=== PATIENT | female | born 1990 | race Caucasian/White ===

== ENCOUNTER → 2021-09-20 08:26 | Outpatient (BNVA) | payer OTHER, SELFPAY | PROVIDERS: PCP Physician Assistant; Visit Provider Psychiatry & Neurology Neurology | DX: G43.909 Migraine, unspecified, not intractable, without status migrainosus (principal); G47.33 Obstructive sleep apnea (adult) (pediatric); G93.2 Benign intracranial hypertension | CPT/HCPCS: 99212 ==

== ENCOUNTER → 2021-10-22 08:49 | Outpatient (BNVA) | payer OTHER, SELFPAY | PROVIDERS: PCP Physician Assistant; Visit Provider Psychiatry & Neurology Neurology | DX: G43.909 Migraine, unspecified, not intractable, without status migrainosus (principal); G47.33 Obstructive sleep apnea (adult) (pediatric); G93.2 Benign intracranial hypertension | CPT/HCPCS: 99212 ==

== ENCOUNTER → 2022-01-07 20:26 | Outpatient (REF) | payer OTHER, SELFPAY | LOC: HO.SL 20:26 | PROVIDERS: PCP Physician Assistant; Visit Provider Psychiatry & Neurology Neurology | DX: G47.33 Obstructive sleep apnea (adult) (pediatric) (principal) | CPT/HCPCS: 95810 ==

== ENCOUNTER 2024-04-24 09:35 | Outpatient (AMB) | payer OTHER, SELFPAY ==
--- NOTE | 2024-04-24 09:38 | MHC.OFFVIS ---
Vital Signs 04/24/24 09:39 Height 5 ft 5 in Weight 261 lb 8 oz BMI 43.5 BP 118/70 Blood Pressure Location Rt brachial Position Sitting Respiration 16 Pulse 79 Pulse Source Pulse Oximeter Pulse Oximetry (%) 98 Oxygen Delivery Method Room Air Intake Visit Reasons: Follow up Intake Note: Pt presents for a 6 month follow up for migraines. 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 Her migraines have been stable with aimovig but for past 1 month she has been having increased episodes of migraines with dizziness and black outs ? ( she describes it as losing consciousness for few minutes. when she wake sup she is dizzy an has decreased headaches. she has nausea, photophobia, phonophobia, tinnitus , eye pain, visual aura).she has persistent pain - worsens every 2-3 days. She treats herself with ubrelvy , advil , excedrin. Sleep study in 2021 was normal SHe sees an office services manager every year - he last eval was in sep 2023 - no swelling. she was also seen by a neurolgist at [place] and was diagnosed with right Carpal tunnel . . [facility] Medical History (Updated 04/24/24 @ 10:11 by Fadia Mayfield MD) Carpal tunnel syndrome of right wrist Chronic migraine with aura Obstructive sleep apnea Obesity Asthma PCOS (polycystic ovarian syndrome) Surgical History Previous section H/O knee surgery Family History Father HTN (hypertension) Migraines Family history of GERD Mother HTN (hypertension) Thyroid disease Cancer Family/Other Asthma Allergy Paternal Grandfather Allergy Asthma Cancer Maternal Grandfather HTN (hypertension) Thyroid disease Social History Alcohol intake: never Patient Tobacco Use Status: Never used Tobacco Substance Use Type: Marijuana Physical Exam Vital Signs: Last Vital Signs Pulse 79 04/24/24 09:39 Resp 16 04/24/24 09:39 BP 118/70 04/24/24 09:39 Pulse Ox 98 04/24/24 09:39 Oxygen Delivery Method Room Air 04/24/24 09:39 BMI result Body Mass Index 43.5 Const General: cooperative and no acute distress Nutritional Appearance: obese Orientation/consciousness: patient oriented x3 Eyes Pupils: Equal, round and reactive pupils present Neuro General: patient oriented x3, gait normal, moves all extremities, no focal motor deficits and CN's II-XI intact bilaterally Cranial nerves: Yes CN's II-XII intact bilaterally, Yes Equal, round and reactive pupils present and Yes Normal facial strength present Cognition (Neuro): normal cognition Assessment & Plan Assessment & Plan (1) Chronic migraine with aura: Code(s): G43.E09 - Chronic migraine with aura, not intractable, without status migrainosus Category: Medical (2) Carpal tunnel syndrome of right wrist: Code(s): G56.01 - Carpal tunnel syndrome, right upper limb Category: Medical Plan I will trial her on Topiramate 25 mg bid Continue ubrelvy and aimovig reports from her neurologist at [facility] ( [facility] ) Urgent f/o ophthalmology Orders: Referrals Hand Surgery Referral G56.01 - Carpal tunnel syndrome, right upper limb Medications: New topiramate 25 mg PO BID 60 tabs 6RF Discontinued acetazolamide Discontinued Reason: Patient no longer taking 500 mg (2 x 250 mg) PO BID 360 tabs 1RF Coding Level of Care Code Est Pt Level 4 (61440) Complex EM visit Add On G2211 Diagnoses Chronic migraine with aura G43.E09 Carpal tunnel syndrome of right wrist G56.01
[2024-04-24 09:39] VITALS: BP 118/70; PULSE 79; RESP 16; O2SAT 98; BMI 43.5
== END 2024-04-24 10:20 | disposition home or self-care (01) ==
PROVIDERS: PCP Internal Medicine; Visit Provider Psychiatry & Neurology Neurology
DX: G43.E09 Chronic migraine with aura, not intractable, without status migrainosus (principal); G56.01 Carpal tunnel syndrome, right upper limb
CPT/HCPCS: 99214; G2211

== ENCOUNTER → 2024-04-24 09:35 | Outpatient (BNVA) | payer OTHER, SELFPAY | PROVIDERS: PCP Internal Medicine; Visit Provider Psychiatry & Neurology Neurology | DX: G43.E09 Chronic migraine with aura, not intractable, without status migrainosus (principal); G56.01 Carpal tunnel syndrome, right upper limb | CPT/HCPCS: 99212 ==

== ENCOUNTER 2024-05-22 09:32 | Outpatient (AMB) | payer OTHER, SELFPAY ==
--- NOTE | 2024-05-22 10:25 | MHC.OFFVIS ---
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 Patient reports she is having more pain than numbness and tingling on the ulnar and radial aspect of the right hand. She is having occasional numbness and minimal tingling. She finds writing makes the pain worse. She had episodes of night numbness and tingling that have now subsided and turned into pain. She has been told this is a neurological problem. Denies finger locking. She is wearing a right hand brace she bought OTC. She has not tried OT. Denies any prior injuries or surgeries to the hands. Patient would like to discuss surgery today however, she is scheduled for a weight loss surgery at the end of the year. 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 Her chief complaint today is of right hand pain, which she demonstrates in the ulnar & radial aspects of her hand & wrist. She says she has pain with activities and use of her hand. 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 She finds her pain is worse with gripping activities, such as writing with a pen, or when doing her hair She reports episodes of intermittent numbness in her thumb index, and middle fingers, worse at night. She says this has transitioned into periods of pain instead. She denies any locking or catching. She denies any prior treatment options. She is wearing a right OTC wrist brace, with limited relief. She has a Hx of chronic migraines. 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 She says she is scheduled for a Gastric bypass on 06/14/24. [facility] Medical History (Updated 05/22/24 @ 11:03 by Darrel Cullen) Carpal tunnel syndrome of right wrist Chronic migraine with aura Obstructive sleep apnea Obesity Asthma PCOS (polycystic ovarian syndrome) Surgical History Previous section H/O knee surgery Family History Father HTN (hypertension) Migraines Family history of GERD Mother HTN (hypertension) Thyroid disease Cancer Family/Other Asthma Allergy Paternal Grandfather Allergy Asthma Cancer Maternal Grandfather HTN (hypertension) Thyroid disease Social History (Updated 05/22/24 @ 10:42 by SUDHEER Malone) Alcohol intake: never Patient Tobacco Use Status: Never used Tobacco Substance Use Type: Marijuana 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, 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 Review of Systems Const All systems reviewed & are unremarkable except as noted in HPI and below Physical Exam Vital Signs: BMI result Body Mass Index 43.5 Const General: cooperative, healthy appearing and no acute distress Orientation/consciousness: patient oriented x3 HEENT Head: Yes normocephalic and Yes atraumatic Eyes EOM: EOMs intact bilaterally Resp Effort & Inspection: normal respiratory effort and able to speak in complete sentences Cardio Jugular venous distension: no JVD Skin General skin exam: turgor normal Rashes: no rashes Neuro General: patient oriented x3 Extrem Other: Evaluation of Right Upper Extremity: The patient is alert, oriented, and in no acute distress Neuro: Median, Ulnar, Radial nerves motor and sensory intact and sensation is normal to the tips of all digits No thenar or intrinsic wasting Good APB muscle belly firing and good finger cross Vascular: Cap refill brisk ROM: She can make a fist and extend all her digits No locking or catching Skin: No lacerations or abrasions. General: No Ecchymosis. No Erythema or evidence of infection. No tenderness over the 1st dorsal compartment Negative Alice test on the right No tenderness over the thumb a1 carmelita She demonstrates pain extending from her lateral elbow up into her shoulder She demonstrates pain radiating down the palmar small finger & hypothenar area, across carpal tunnel, and up the volar aspect of the thumb Nerve Conduction Study: Impression 1. Mild bilateral carpal tunnel syndrome, R>L 2. No evidence of cervical radiculopathy, or ulnar neuropathy Amilcar Clark M.D. 07/28/23 [facility] lab Please see scanned report for more information Psych Appearance: grossly normal Affect: normal affect Attitude: cooperative Assessment & Plan Assessment & Plan (1) Carpal tunnel syndrome of right wrist: Code(s): G56.01 - Carpal tunnel syndrome, right upper limb Category: Medical (2) Carpal tunnel syndrome of left wrist: Code(s): G56.02 - Carpal tunnel syndrome, left upper limb Category: Medical (3) Right hand pain: Code(s): M79.641 - Pain in right hand Category: Medical Plan Assessment & Plan: 1. Right carpal tunnel syndrome, mild Symptoms intermittent & occasional 2. Left carpal tunnel syndrome, mild Symptoms intermittent & occasional I educated her about this conditions If her symptoms increase in frequency or severity, she can follow up to discuss treatment options She will make a follow up appointment when she has recovered from her weight loss surgery 3. Right hand pain Volar aspect of small finger, hypothenar area, thenar area, and thumb Primarily with writing or other activities. I educated her about this condition I discussed activity modification, she should try to limit or avoid the activities which cause her pain Scribed for Kelley Fields MD by Darrel Cullen medical support assistant, on 05/22/24 at 10:50 AM, EST. Coding Level of Care Code New Pt Level 3 (68811) Diagnoses Carpal tunnel syndrome of right wrist G56.01 Carpal tunnel syndrome of left wrist G56.02 Right hand pain M79.641
[2024-05-22 10:37] VITALS: BMI 43.5
== END 2024-05-22 11:29 | disposition home or self-care (01) ==
PROVIDERS: PCP Internal Medicine; Visit Provider Orthopaedic Surgery
DX: G56.03 Carpal tunnel syndrome, bilateral upper limbs (principal); M79.641 Pain in right hand
CPT/HCPCS: 99203

== ENCOUNTER → 2024-05-22 09:32 | Outpatient (BNVA) | payer OTHER, SELFPAY | PROVIDERS: PCP Internal Medicine; Visit Provider Orthopaedic Surgery | DX: G56.03 Carpal tunnel syndrome, bilateral upper limbs (principal); M79.641 Pain in right hand | CPT/HCPCS: 99202 ==

== ENCOUNTER 2025-04-18 11:05 | Outpatient (AMB) | payer MEDICAID, SELFPAY ==
--- OUTSIDE RECORDS SUMMARY | 2025-04-11 10:15 | XMS_ITS | Encounter Summary ---
Author Organization [employer] Address [address] [place] [address] Support Name Relationship Address Phone Axel England Domestic partner [address] [facility] [facility] [facility] [address] [place] [address] Care Team Providers Care Farm Management Supervisor Name Role Phone Suze Shahid MD Primary Care Provider [phone] Reason for Referral * Consultation (Urgent) - Closed Specialty Diagnoses / Procedures Referred By Pau almanzar Referred To Contact Neurology Diagnoses Overweight (BMI 25.0-29.9) Pseudotumor cerebri Nicole Lagunas PA [address] [place] [address] Phone: tel: fax: [facility] [address] [address] Phone: tel: fax: Referral ID Status Reason Start Date Expiration Date V isits Requested Visits Authorized [id number] Closed Specialty Services Required 04/11/2025 04/11/2026 1 1 Reason for Visit * Reason Comments Follow-up 2 month Encounter Details Date Type Department Care Team ([facility] Contact Info) Description 04/11/2025 10:15 AM EDT Office Visit Bariatric Surgery - [place] [address] [facility] [address] [place] [phone] Nicole Lagunas PA [address] [place] [phone] Overweight (BMI 25.0-29.9) (Primary Dx); Pseudotumor cerebri Social History Tobacco Use Types Packs/Day Years Used Date Smoking Tobacco: Never Smokeless Tobacco: Never Alcohol Use Standard Drinks/Week Comments Never 0 (1 standard drink = 0.6 oz pur e alcohol) Housing Instability Answer Date Recorde d Are you worried that in the next 2 months you may not have stable housing? Unable to respond 02/12/2025 Food Access & Nutrition Answer Date Rec orded Do you have access to a vari ety of food including fruits and vegetables? Unable to respond 02/12/2025 Health Literacy Answer Date Recorded How often do you need to hav e someone help you when you read instructions, pamphlets, or other written material from your doctor or pharmacy? Unable to respond 02/12/2025 Caregiver: How often do you need to have someone help you when you read instructions, pamphlets, or other written material from your doctor or pharmacy? Not on file 025 Financial Risk Answer Date Recorded How hard is it for you to pa y for the very basics like food, housing, medical care, and air conditioning / heating? Not asked 02/12/2025 Transportation Answer Date Recorded Has the lack of transportati on kept you from meetings, work, or from getting things needed for daily living? Unable to respond 02/12/2025 Has the lack of transportati on kept you from medical appointments or from getting medications? Unable to respond 02/12/2025 Social Isolation Answer Date Recorded How often do you feel lonely or isolated from those around you? Unable to respond 02/12/2025 Food Risk Answer Date Recorded Within the past 12 months we worried whether our food would run out before we got money to buy more. Not asked 02/12/2025 Within the past 12 months th e food we bought just didn't last and we didn't have money to get more. Not asked 02/12/2025 Dependent Care Answer Date Recorded Do you need help finding or paying for care for your loved ones. For example, child development professor or elderly care for an older adult? Unable to respond 02/12/2025 Employment and Income Answer Date Recor ded During the last four weeks, have you been actively looking for work? Unable to respond 02/12/2025 Living Situation Answer Date Recorded What is your living situation? 0 02/12/2025 Comments No Sex and Gender Information Value Date Recorded Sex Assigned at Female 07/27/2024 11:46 AM EST Legal Sex Female 12:42 AM EST Gender Identity Female 07/27/2024 11:46 AM EST Sexual Orientation Straight 07/27/2024 11 :46 AM EST documented as of this encounter Last Filed Vital Signs Vital Sign Reading Time Taken Comments Blood Pressure 103/68 04/11/2025 10:13 AM EDT Pulse 64 04/11/2025 10:13 AM EDT Temperature 36.6 C (97.8 F) 04/11/2025 10:13 AM EDT Respiratory Rate - - Oxygen Saturation - - Inhaled Oxygen Concentration - - Weight 75.8 kg (167 lb) 04/11/2025 10:13 AM EDT Height 165.1 cm (5' 5 ) 04/11/2025 10:13 AM EDT Body Mass Index 27.79 04/11/2025 10:13 AM EDT documented in this encounter Functional Status * Are you deaf or do you have serious difficulty hearing? Answer Date of Assessment Author No 12/14/2024 8:00 AM VISHALT Phoebe Lawrence RN * Are you blind or do you have serious difficulty seeing, even when wearing glasses? Answer Date of Assessment Author No 12/14/2024 8:00 AM Phoebe Arce, BRAYDEN * Do you have serious difficulty walking or climbing stairs? Answer Date of Assessment Author No 12/14/2024 8:00 AM Phoebe Arce RN * Do you have serious difficulty dressing or bathing? Answer Date of Assessment Author No 12/14/2024 8:00 AM Phoebe Arce RN * Because of a physical, mental, or emotional condition, do you have serious difficulty doing errandsalone such as visiting the doctor? Answer Date of Assessment Author No 12/14/2024 8:00 AM Phoebe Arce RN documented as of this encounter Mental Status * Because of a physical, mental, or emotional condition, do you have serious difficulty concentrating, remembering, or making decisions? (5 years old or older) Answer Entry Date Author No 12/14/2024 8:00 AM EDT Phoebe Lawrence RN documented in this encounter Progress Notes * BEE Roldan - 04/11/2025 10:15 AM EDT Samantha Casas is a 34 y.o. year old female who presents for follow up regarding obesity. HPI: Samantha Casas presents for surgical follow up s/p sleeve gastrectomy with Dr. Guzman at [facility] on 06/14/2024. - 6 lbs since last appt Patient still dealing with dizziness Initially believed it may be related to her pseudotumor cerebri States that she is starting to get migraines once again Prior to her bariatric surgery she used to experience migraines associated with dizziness She was on an injection to treat her pseudotumor cerebri and this has been held due to issues with her insurance for many months Dizziness does happen with positional changes however sometimes happens while she is walking That the dizziness occurring with positional changes has somewhat improved In the past 2 months she has had 2 episodes of random loss of consciousness She has been caught and not fallen Has had no injuries to her head She has increased her water and her salt intake She does take daily multivitamin Labs were last checked on 04/04/2025 They were all within normal limits including albumin of 3.6 She was supposed to follow-up with her neurologist however the appointment was canceled Has not followed up with her PCP States that she is getting over 64 ounces of clear fluid on a daily basis Meeting her protein goals Taking her vitamins Blood pressure has been within normal limits her last 2 visits Body mass index is 27.79 kg/m??. ROS: GENERAL: No malaise, significant unintentional weight loss, fever, chills or night sweats. RESPIRATORY: No cough, wheezing or shortness of breath CARDIOVASCULAR: No chest pain, leg swelling or palpitations. GI: No abdominal discomfort, nausea, vomiting, or change in bowel habits. : No dysuria, frequency or incontinence. SKIN: No lesions, rash or itching. HEMATOLOGY/LYMPHOLOGY No prolonged bleeding, easy bruisability or swollen nodes. MUSCULOSKELETAL: No abnormalities. NEURO: No abnormalities. The remainder of the review of systems is noncontributory PAST MEDICAL HISTORY: Patient Active Problem List Diagnosis PCOS (polycystic ovarian syndrome) Asthma Migraine Pseudotumor cerebri BRYAN (obstructive sleep apnea) Bariatric surgery status Cysts of both ovaries PAST SURGICAL HISTORY: Past Surgical History: Procedure Laterality Date SECTION PROCEDURE: HISTORICAL DELIVERY; COMMENT: 2 x KNEE SURGERY Right 2012 PROCEDURE: HISTORICAL KNEE SURGERY; COMMENT: arthroscopy for dislocated patella w/ meniscus injury OTHER SURGICAL HISTORY PROCEDURE: LUMBAR PUNCTURE LAB ORDERS; COMMENT: 5 x SLEEVE GASTROPLASTY 06/14/2024 TUBAL LIGATION 2011 PROCEDURE: HISTORICAL TUBAL LIGATION SOCIAL HISTORY: Social History Tobacco Use Smoking status: Never Smokeless tobacco: Never Substance Use Topics Alcohol use: Never FAMILY HISTORY: Family History Problem Relation Name Age of Onset Hypertension Mother hyperthyroidism, thyroid cancer Uterine cancer Mother 48 Hypertension Father migraines, GERD Prostate cancer Father Asthma Sister pseudotumor cerebri Asthma Daughter Asthma Son autism Diabetes Maternal Grandmother HTN, dementia Breast cancer Maternal Grandmother Diabetes Maternal Grandfather HTN, CAD Diabetes Paternal Grandmother Asthma Paternal Grandfather prostate cancer Colon cancer Neg Hx Ovarian cancer Neg Hx Family Status Relation Name Status Mother Alive Father Alive Sister Alive Daughter Alive Son Alive MGM MGF PGM Alive PGF Alive Neg Hx (Not Specified) No partnership data on file MEDICATIONS: There are no discontinued medications. ACTIVE MEDICATIONS: No outpatient medications have been marked as taking for the 04/11/25 encounter (Office Visit) with BEE Roldan. ALLERGIES: Allergies Allergen Reactions Ciprofloxacin Rash and Unknown PHYSICAL EXAM: Visit Vitals BP 103/68 Pulse 64 Temp 36.6 ??C (97.8 ??F) (Temporal) Ht 1.651 m (65 ) Wt 75.8 kg (167 lb) BMI 27.79 kg/m?? OB Status Having periods Smoking Status Never BSA 1.83 m?? APPEARANCE: Alert and in no acute distress EYES: Conjunctiva normal and sclera normal and anicteric. LUNG: Chest no retractions. ABDOMEN: Soft, non-tender, without organomegaly or palpable masses. EXTREMITIES: Extremities warm and well perfused without clubbing, cyanosis, or edema. SKIN: Skin color and texture normal. No rashes or lesions. ASSESSMENT: 1. Overweight (BMI 25.0-29.9) 2. Pseudotumor cerebri PLAN: 1. Overweight- Labs unremarkable Blood pressure within normal limits Certainly could be some degree of orthostatic hypotension although increasing her salt and fluid intake has not yielded any positive results Did have pretty severe pseudotumor cerebri requiring multiple medications prior to her bariatric surgery This could certainly be impacting the symptoms Recommend urgent follow-up with her neurologist Did recommend to the patient that should she have another loss of consciousness episode she should immediately proceed to the ER F/U in 4 weeks Medication and lab orders: Orders Placed This Encounter Procedures Ambulatory referral to Neurology Other orders: AMB REFERRAL TO NEUROLOGY cc: Suze Shahid MD * Paola Guzman MD - 04/11/2025 10:15 AM EDT I have reviewed the notes, assessments, and/or procedures performed by Nicole Lagunas PA-C, I concur with her/his documentation of Samantha Casas. documented in this encounter Plan of Treatment Upcoming Encounters Date Type Department Care Team (Late st Contact Info) Description 04/28/2025 9:30 AM EDT Office Visit Internal Medicine - [place] [address] [facility] [address] [place] [phone] John Oscar, RACHEL [address] [place] [phone] 05/07/2025 10:45 AM EDT Office Visit Bariatric Surgery - [place] [address] [facility] [address] [place] [phone] Nicole Lagunas PA [address] [place] [phone] 05/09/2025 9:15 AM EDT Consult Orthopedic Surgery - [place] [address] [facility] [address] [place] [phone] Torsten Pressley, DPM [address] [facility] [address] [place] [address] 06/24/2025 10:15 AM EST Office Visit Pulmonolgy - [place] [address] [phone] Vahid Vuong MD [address] [address] Scheduled Referrals Name Type Priority Associated Diagnoses Order Schedule Ambulatory referral to Neurology Outpatient Referral Routine Overweight (BMI 25.0-29.9) Pseudotumor cerebri Expected: 04/18/2025, Expires: 04/11/2026 documented as of this encounter Visit Diagnoses Diagnosis Overweight (BMI 25.0-29.9)- Primary Overweight Pseudotumor cerebri Benign intracranial hypertension documented in this encounter Additional Health Concerns Assessment Noted Time PHQ-9 Depression Total Score: 2 12/26/19 25 9:18 AM EDT documented as of this encounter Care Teams Farm Management Supervisor Relationship Specialty Start Date End Date Suze Shahid MD [address] [place] [phone] PCP - General Internal Medicine 06/03/21 documented as of this encounter
--- OUTSIDE RECORDS SUMMARY | 2025-04-17 11:30 | XMS_ITS | Encounter Summary ---
Author Organization [facility] Address [address] [place] [address] Support Name Relationship Address Phone Axel England Domestic partner [address] [facility] [address] [place] [address] Care Team Providers Care Biochemistry Technician Name Role Phone Suze Shahid MD Primary Care Provider [phone] Reason for Referral * Consultation (Routine) - Authorized Specialty Diagnoses / Procedures Referred By Contact Referred To Contact Podiatry / Orthopaedic Surgery Diagnoses Foot callus Baldo Hollis MD [address] [place] [address] Phone: tel: fax: Orthopedic Surgery [facility] [address] [place] [phone] Phone: tel: fax: Referral ID Status Reason Start Date Expiration Date Visits Requested Visits Authorized [id number] Authorized Specialty Services Required 04/17/2025 04/17/2026 6 6 * Consultation (Routine) - Pending Review Specialty Diagnoses / Procedures Referred By Contac t Referred To Contact Cardiology Diagnoses Syncope, unspecified syncope type Baldo Hollis MD [address] [place] [address] Phone: tel: fax: [facility] [address] [place] [address] Phone: tel: fax: Referral ID Status Reason Start Date Expiration Date Visits Requested Visits Authorized [id number] Pending Review Specialty Services Required 04/17/2025 04/17/2026 12 12 Reason for Visit * Reason Comments Fatigue Foot Pain Encounter Details Date Type Department Care Team (Late st Contact Info) Description 04/17/2025 11:30 AM EDT Office Visit Internal Medicine - [place] [address] [facility] [address] [place] [address] Baldo Hollis MD [address] [place] [address] Syncope, unspecified syncope type (Primary Dx); Pseudotumor cerebri; Bariatric surgery status; Foot callus Social History Tobacco Use Types Packs/Day Years [...] for your loved ones. For example, child welfare manager or elderly care for an older adult? [...] Sign Reading Time Taken Comments Blood Pressure 98/62 04/17/2025 10:57 AM EDT Pulse 68 04/17/2025 10:57 AM EDT Temperature - - Respiratory Rate - - Oxygen Saturation 100% 04/17/2025 10:57 AM EDT Inhaled Oxygen Concentration - - Weight 72.6 kg (160 lb) 04/17/2025 10:57 AM EDT Height 165.1 cm (5' 5 ) 04/17/2025 10:57 AM EDT Body Mass Index 26.63 04/17/2025 10:57 AM EDT documented in this encounter Functional Status * Are you deaf or do you have serious difficulty hearing? Answer Date of Assessment Author No 12/14/2024 8:00 AM EDT Phoebe Lawrence, BRAYDEN * Are you blind or do you have serious difficulty seeing, even when wearing glasses? Answer Date of Assessment Author No 12/14/2024 8:00 AM EDT Phoebe Lawrence RN * Do you have serious difficulty walking [...] Entry Date Author No 12/14/2024 8:00 AM Phoebe Arce RN documented in this encounter Progress Notes * Baldo Hollis MD - 04/17/2025 11:30 AM EDT CHIEF COMPLAINT: Fatigue and Foot Pain IDENTIFIER: Samantha Casas is a 34 y.o. old female. History of Present Illness The patient presents for evaluation of syncope and foot callus. - Syncope patient have history of few presyncopal episode with 1 syncope. - She reports three fainting episodes following weight loss surgery, accompanied by frequent dizziness. - Her weight loss team is aware and investigating potential neurological causes. - Neurology appointment scheduled for tomorrow. - History of pseudotumor cerebri, previously uncontrolled, led to weight loss surgery under Dr. Coronel's care. - One episode involved complete loss of consciousness; two episodes were near- blackouts, prevented with her 's help. - Severe dizziness required lying down. - On one occasion, she felt immobile for five minutes before recovering. - No longer taking topiramate. Foot Callus - A painful foot callus developed three months ago, resistant to self-treatment, causing difficultywalking in shoes. - Uncertain if pain is due to callus or nail issue. - Occasional abdominal pain, possibly related to bending and lifting during a recent move. PAST SURGICAL HISTORY: Weight loss surgery Surgery for pseudotumor cerebri ROS: as per HPI GENERAL: No malaise, significant weight loss or fever HEENT: No changes in hearing or vision, nose bleeds or other nasal problems NECK: No lumps, goiter, pain or significant neck swelling RESPIRATORY: No cough, wheezing or shortness of breath CARDIOVASCULAR: No chest pain, leg swelling or palpitations BREAST: No lumps, discharge, pain or change in skin GI: No abdominal discomfort, blood in stools or black stools : No dysuria, frequency or incontinence BABY COUNSELOR: No abnormal vaginal bleeding or abnormal vaginal discharge. MUSCULOSKELETAL: No joint pain or swelling, back pain, or muscle pain. SKIN: No lesions, rash or itching PSYCH: No sleep disturbance, mood disorder or recent psychosocial stressors. HEMATOLOGY/LYMPHOLOGY No prolonged bleeding, easy bruisability or swollen nodes ENDOCRINE: No cold or heat intolerance, polyuria, polydipsia or goiter. NEURO: No persistent headache, syncope, seizures, weakness or numbness The remainder of the review of systems is noncontributory PAST MEDICAL HISTORY: Patient Active Problem List Diagnosis Date Noted Cysts of both ovaries 10/24/2024 Bariatric surgery status 06/27/2024 Pseudotumor cerebri 04/12/2021 BRYAN (obstructive sleep apnea) 04/12/2021 PCOS (polycystic ovarian syndrome) 03/15/2021 Asthma 03/15/2021 Migraine 03/15/2021 Past Surgical History: Procedure Laterality Date SECTION [...] (Not Specified) No partnership data on file MEDICATIONS DISCONTINUED/REORDERED: Medications Discontinued During This Encounter Medication Reason topiramate (TOPAMAX) 25 mg tablet Non-compliance ACTIVE MEDICATIONS: No outpatient medications have been marked as taking for the 04/17/25 encounter (Office Visit) with Baldo Hollis MD. ALLERGIES: Allergies Allergen Reactions Ciprofloxacin Rash and Unknown PHYSICAL EXAM: Visit Vitals BP 98/62 (BP Location: Left arm, Patient Position: Sitting, BP Cuff Size: Large adult) Pulse 68 Ht 1.651 m (65 ) Wt 72.6 kg (160 lb) SpO2 100% BMI 26.63 kg/m?? OB Status Having periods Smoking Status Never BSA 1.8 m?? Physical Exam Physical Exam General Appearance: well appearing and not on acute distress HEENT: Normocephalic. External ears normal. Nose normal. Mucous membranes are moist. Oropharynx is clear. Eyes: Conjunctivae normal. Respiratory: CTA, no wheezing, rales, or rhonchi Cardiovascular: RRR, no murmurs, rubs, or gallops Gastrointestinal: BS present Back, Musculoskeletal: Normal range of motion. Normal cervical range of motion and neck supple. Skin: Warm and dry, no rash. Neurological: Alert. LABS/IMAGING: Appointment on 04/04/2025 Component Date Value Ref Range Status Selenium 04/04/2025 107 63 - 160 mcg/L Final Vitamin B1 Whole Blood 04/04/2025 78 38 - 122 ug/L Final Vitamin B-12 04/04/2025 539 250 - 900 pcg/mL Final Vitamin B6 (Pyridoxine) Level 04/04/2025 27 5 - 50 ug/L Final Vit D, 25-Hydroxy 04/04/2025 42.3 30.0 - 80.0 ng/mL Final Zinc 04/04/2025 64 60 - 130 ug/dL Final Iron 04/04/2025 89 40 - 150 mcg/dL Final TIBC 04/04/2025 266 250 - 450 mcg/dL Final Iron Saturation 04/04/2025 33 15 - 50 % Final Folate 04/04/2025 8.5 2.8 - 17.0 ng/ml Final Sodium 04/04/2025 142 133 - 145 mmol/L Final Potassium 04/04/2025 3.8 3.5 - 5.5 mmol/L Final Chloride 04/04/2025 110 96 - 110 mmol/L Final CO2 04/04/2025 29 21 - 32 mmol/L Final Anion Gap 04/04/2025 3 3 - 11 Final Glucose 04/04/2025 82 70 - 100 mg/dL Final BUN 04/04/2025 13 5 - 25 mg/dL Final Creatinine 04/04/2025 0.74 0.50 - 1.10 mg/dL Final eGFR 04/04/2025 110 >=60 mL/min/1.73m2 Final BUN/Creatinine Ratio 04/04/2025 17.6 Final Calcium 04/04/2025 9.0 8.5 - 10.5 mg/dL Final AST (SGOT) 04/04/2025 16 10 - 42 unit/L Final ALT (SGPT) 04/04/2025 24 10 - 60 unit/L Final Alkaline Phosphatase 04/04/2025 60 42 - 121 unit/L Final Total Protein 04/04/2025 6.5 6.0 - 8.0 g/dL Final Albumin 04/04/2025 3.6 3.2 - 5.0 g/dL Final Total Bilirubin 04/04/2025 0.6 0.0 - 1.4 mg/dL Final Appointment on 03/20/2025 Component Date Value Ref Range Status Specific Dra[place] Urine 03/20/2025 1.017 1.003 - 1.030 Final pH, Urine 03/20/2025 7.0 5.0 - 8.0 pH Final Leukocytes, Urine 03/20/2025 Negative Negative Final Nitrite, Urine 03/20/2025 Negative Negative Final Protein, Urine 03/20/2025 Negative <=Trace mg/dL Final Glucose, Urine 03/20/2025 Negative Negative mg/dL Final Ketones, Urine 03/20/2025 Negative Negative mg/dL Final Urobilinogen, Urine 03/20/2025 1.0 0.2 - 1.0 mg/dL Final Bilirubin, Urine 03/20/2025 Negative Negative Final Blood, Urine 03/20/2025 Negative Negative Final Extra Tube 03/20/2025 Hold for add-ons. Final Appointment on 12/16/2024 Component Date Value Ref Range Status Selenium 12/16/2024 135 63 - 160 mcg/L Final Zinc 12/16/2024 74 60 - 130 ug/dL Final Vit D, 25-Hydroxy 12/16/2024 40.9 30.0 - 80.0 ng/mL Final Vitamin B-12 12/16/2024 492 250 - 900 pcg/mL Final Vitamin B1 Whole Blood 12/16/2024 67 38 - 122 ug/L Final Vitamin B6 (Pyridoxine) Level 12/16/2024 5 5 - 50 ug/L Final Iron 12/16/2024 79 40 - 150 mcg/dL Final TIBC 12/16/2024 285 250 - 450 mcg/dL Final Iron Saturation 12/16/2024 28 15 - 50 % Final Calcium 12/16/2024 8.8 8.5 - 10.5 mg/dL Final Albumin 12/16/2024 3.4 3.2 - 5.0 g/dL Final Admission on 12/14/2024, Discharged on 12/14/2024 Component Date Value Ref Range Status Ventricular Rate ECG 12/14/2024 62 BPM Final Atrial Rate 12/14/2024 62 BPM Final P-R Interval 12/14/2024 154 ms Final QRS Duration 12/14/2024 94 ms Final Q-T Interval 12/14/2024 424 ms Final QTc 12/14/2024 430 ms Final P Wave [place] 12/14/2024 26 degrees Final R [place] 12/14/2024 45 degrees Final T [place] 12/14/2024 30 degrees Final ECG Interpretation 12/14/2024 Final Value:Normal sinus rhythm Normal ECG When compared with ECG of 06-JUN-2024 08:38, No significant change was found Confirmed by DELMER JENKINS ([id number]) on 12/14/2024 2:53:25 PM Sodium 12/14/2024 140 133 - 145 mmol/L Final Potassium 12/14/2024 3.8 3.5 - 5.5 mmol/L Final Chloride 12/14/2024 110 96 - 110 mmol/L Final CO2 12/14/2024 24 21 - 32 mmol/L Final Anion Gap 12/14/2024 6 3 - 11 Final Glucose 12/14/2024 91 70 - 100 mg/dL Final BUN 12/14/2024 24 5 - 25 mg/dL Final Creatinine 12/14/2024 0.71 0.50 - 1.10 mg/dL Final eGFR 12/14/2024 116 >=60 mL/min/1.73m2 Final BUN/Creatinine Ratio 12/14/2024 33.8 Final Calcium 12/14/2024 9.0 8.5 - 10.5 mg/dL Final Magnesium 12/14/2024 2.0 1.9 - 2.6 mg/dL Final WBC 12/14/2024 9.9 4.8 - 10.8 K/mcL Final RBC 12/14/2024 4.10 3.80 - 4.80 M/mcL Final Hemoglobin 12/14/2024 12.1 11.5 - 16.0 g/dL Final Hematocrit 12/14/2024 36.5 35.0 - 47.0 % Final MCV 12/14/2024 89.9 79.0 - 98.0 FL Final MCH 12/14/2024 29.8 27.0 - 32.0 pcg Final MCHC 12/14/2024 33.2 32.0 - 37.0 g/dL Final RDW 12/14/2024 13.7 11.0 - 15.0 % Final Platelets 12/14/2024 260 130 - 400 K/mcL Final MPV 12/14/2024 11.8 (H) 7.0 - 11.0 FL Final NRBC 12/14/2024 0.0 <1.0 % Final NRBC Absolute 12/14/2024 0.00 <0.10 K/mcL Final Neutrophils Relative 12/14/2024 62.0 % Final Lymphocytes Relative 12/14/2024 29.5 % Final Monocytes Relative 12/14/2024 5.2 % Final Eosinophils Relative 12/14/2024 2.1 % Final Basophils Relative 12/14/2024 0.8 % Final Immature Granulocytes Relative 12/14/2024 0.4 % Final Neutrophils Absolute 12/14/2024 6.12 1.50 - 7.00 K/mcL Final Lymphocytes Absolute 12/14/2024 2.91 1.00 - 5.00 K/mcL Final Monocytes Absolute 12/14/2024 0.51 0.20 - 1.00 K/mcL Final Eosinophils Absolute 12/14/2024 0.21 0.00 - 0.50 K/mcL Final Basophils Absolute 12/14/2024 0.08 0.00 - 0.20 K/mcL Final Immature Granulocytes Absolute 12/14/2024 0.04 (H) 0.00 - 0.03 K/mcL Final Specific Draper Urine 12/14/2024 1.015 1.003 - 1.030 Final pH, Urine 12/14/2024 6.5 5.0 - 8.0 pH Final Leukocytes, Urine 12/14/2024 Large (A) Negative Final Nitrite, Urine 12/14/2024 Negative Negative Final Protein, Urine 12/14/2024 Negative <=Trace mg/dL Final Glucose, Urine 12/14/2024 Negative Negative mg/dL Final Ketones, Urine 12/14/2024 Negative Negative mg/dL Final Urobilinogen, Urine 12/14/2024 1.0 0.2 - 1.0 mg/dL Final Bilirubin, Urine 12/14/2024 Negative Negative Final Blood, Urine 12/14/2024 Negative Negative Final RBC, Urine 12/14/2024 0.7 0 - 4 /HPF Final WBC, Urine 12/14/2024 45.6 (H) 0 - 4 /HPF Final Squamous Epithelial, Urine 12/14/2024 >100 (H) 0 - 60 /LPF Final Bacteria, Urine 12/14/2024 Few (A) Negative /HPF Final Hyaline Casts, Urine 12/14/2024 0.8 0 - 3 /LPF Final HCG, Ur POC 12/14/2024 Negative Negative Final POC hCG Int QC Pass? 12/14/2024 Yes Yes Final Extra Tube 12/14/2024 Hold for add-ons. Final Results IMPRESSION: 1. Syncope, unspecified syncope type 2. Pseudotumor cerebri 3. Bariatric surgery status 4. Foot callus PLAN: Syncope, unspecified syncope type (Primary) - Ambulatory referral to Cardiology; Future Pseudotumor cerebri Bariatric surgery status Foot callus - Ambulatory referral to Podiatry; Future Assessment & Plan 1. Syncope: Acute. - Neurology appointment scheduled for tomorrow to evaluate neurological symptoms. - Cardiology referral initiated to rule out cardiac etiology. Cardiology team to contact within 5 business days; follow up if no contact. 2. Foot callus: Chronic. - Podiatry referral initiated for callus management, including scraping and potential footwear recommendations. Podiatry team to contact within 5 business days; follow up if no contact. Follow-up - Neurology appointment tomorrow. - Cardiology team to contact within 5 business days. - Podiatry team to contact within 5 business days. - Advised to follow-up with the PCP for further management. I have obtained verbal consent from Samantha Casas prior to the recording. I have advised Samantha Casas that she may refuse the recording and require the recording to be turned off at any time during this encounter. Advised the patient to call me if any problems. Patient understands the plan. Patient is in agreement with the plan. Baldo Hollis MD on 04/17/2025 at 5:06 PM EDT documented in this encounter Plan of Treatment Upcoming Encounters Date Type Department Care Team (Late st Contact Info) Description 04/28/2025 9:30 AM EDT Office Visit Internal Medicine - [place] 175 [facility] [address] [place] [phone] John Oscar NP [address] [place] [phone] 05/07/2025 10:45 AM EDT Office Visit Bariatric Surgery - [place] 175 [facility] [address] [place] [phone] Nicole Lagunas PA [address] [place] [phone] 05/09/2025 9:15 AM EDT Consult Orthopedic Surgery - [place] 250 [address] [facility] [address] [place] [phone] Torsten Pressley DPM [address] [facility] [address] [place] [phone] 06/24/2025 10:15 AM EST Office Visit Pulmonolgy - [place] [address] [facility] [address] [place] [phone] Vahid Vuong MD 175 [facility] [address] [place], [place] [phone] Scheduled Referrals Name Type Priority Associated Diagnoses Orde r Schedule Ambulatory referral to Cardiology Outpatient Referral Routine Syncope, unspecified syncope type Expected: 05/01/2025, Expires: 04/17/2026 Ambulatory referral to Podiatry Outpatient Referral Routine Foot callus Expected: 04/24/2025, Expires: 04/17/2026 documented as of this encounter Visit Diagnoses Diagnosis Syncope, unspecified syncope type- Primary Pseudotumor cerebri Benign intracranial hypertension Bariatric surgery status Foot callus Corns and callosities documented in this encounter Discontinued Medications Medication Sig Discontinue Reason Start Date End Da te topiramate (TOPAMAX) 25 mg tablet Take 1 tablet (25 mg total) by mouth 2 (two) times a day. Non-compliance 04/17/2025 documented as of this encounter Additional Health Concerns Assessment Noted Time PHQ-9 Depression Total Score: 2 12/26/19 25 9:18 AM EDT documented as of this encounter Care Teams Biochemistry Technician Relationship Specialty Start Date End Date Suze Shahid MD [address] [address] PCP - General Internal Medicine 06/03/21 documented as of this encounter
--- OUTSIDE RECORDS SUMMARY | 2025-04-18 09:15 | XMS_ITS | Encounter Summary ---
Author Organization [facility] Address [address] [place] [address] Support Name Relationship Address Phone Axel England Domestic partner [address] [facility] [address] [place] [address] Care Team Providers Care Program Manager Slp Name Role Phone Suze Shahid MD Primary Care Provider [phone] Reason for Visit * Therapy (Routine) - Authorized Specialty Diagnoses / Procedures Referred By Pau almanzar Referred To Contact Pulmonology Diagnoses Moderate persistent asthma, unspecified whether complicated Procedures Pulmonary function testing: Spirometry with Bronchodilator, Carbon Monoxide Diffusing Capacity, Vital Capacity Test, Nitrogen Wash Out Vahid Vuong MD Phone: tel: fax: Pulmon[address] [address] Phone: tel: fax: Referral ID Status Reason Start Date Expiration Date V isits Requested Visits Authorized [id number] Authorized 04/10/2025 04/10/2026 1 1 Encounter Details Date Type Department Care Team (Latest Contact Info) Description 04/18/2025 9:15 AM EDT Ancillary Procedure [address] [phone] Moderate persistent asthma, unspecified whether complicated Social History Tobacco Use Types Packs/Day Years [...] AM EST documented as of this encounter Functional Status * Are you deaf or do you have serious difficulty hearing? Answer Date of Assessment Author No 12/14/2024 8:00 AM EDT Phoebe Lawrence RN * Are you blind [...] 8:00 AM EDT Phoebe Lawrence RN * Because of a physical, mental, or emotional condition, do you have serious difficulty doing errandsalone such as visiting the doctor? Answer Date of Assessment Author No 12/14/2024 8:00 AM VISHALT Phoebe Lawrence RN documented as of this encounter Mental Status * Because of a physical, mental, or emotional condition, do you have serious difficulty concentrating, remembering, or making decisions? (5 years old or older) Answer Entry Date Author No 12/14/2024 8:00 AM EDT Phoebe Lawrence RN documented in this encounter Progress Notes * Jeanine Motta - 04/18/2025 9:15 AM EDT PFT performed documented in this encounter Plan of Treatment Upcoming Encounters Date Type Department Care Team (Late st Contact Info) Description 04/28/2025 9:30 AM EDT Office Visit Internal Medicine - [place] 175 [facility] [address] [place] [phone] John Oscar NP [address] [place] [phone] 05/07/2025 10:45 AM EDT Office Visit Bariatric Surgery - [place] 175 [facility] [address] [place] [phone] Nicole Lagunas PA [address] [place] [address] 05/09/2025 9:15 AM EDT Consult Orthopedic Surgery - [place] 250 [address] [facility] [address] [place] [phone] Torsten Pressley DPM 175 [facility] [address] [place] [phone] 06/24/2025 10:15 AM EST Office Visit Pulmonolgy - [place] 175 [facility] [address] [place] [phone] Vahid Vuong MD [address] [address] Pending Results Name Type Priority Associated Diagnoses Date /Time Pulmonary function testing: Spirometry with Bronchodilator, Carbon Monoxide Diffusing Capacity, Vital Capacity Test, Nitrogen Wash Out PFT Routine Moderate persistent asthma, unspecified whether complicated 04/18/2025 9:18 AM EDT documented as of this encounter Procedures Procedure Name Priority Date/Time Associated Diagnosis Comments PULMONARY FUNCTION TESTING Routine 04/18/2025 9:18 AM EDT Moderate persistent asthma, unspecified whether complicated documented in this encounter Visit Diagnoses Diagnosis Moderate persistent asthma, unspecified whether complicated documented in this encounter Additional Health Concerns Assessment Noted Time PHQ-9 Depression Total Score: 2 12/26/19 9:18 AM EDT documented as of this encounter Care Teams Program Manager Slp Relationship Specialty Start Date End Date Suze Shahid MD [address] [address] PCP - General Internal Medicine 06/03/21 documented as of this encounter
--- NOTE | 2025-04-18 11:29 | A.OFFVIS_ITS ---
Vital Signs 04/18/25 11:30 Height 5 ft 5 in Weight 159 lb 6 oz BMI 26.5 BP 114/74 Blood Pressure Location Rt brachial Position Sitting Pulse 66 Pulse Source Pulse Oximeter Pulse Oximetry (%) 99 Oxygen Delivery Method Room Air Intake Visit Reasons: Fainting after weight loss surgery Intake Note: Patient presents fainting after weight loss surgery. Had Gastric Sleeve done . First started getting dizzy around and was told to take more salt. For the last month she has been fainting on blacked out once(at [employer]). Feels dizzy and room starts spinning and she takes seat. Labs in Chart. February she was hospitalized at [facility] for UTI/Dehydration/Malnourished and was throwing up. Has not taken Aimovig for almost a year. Getting migraine 1-2 migraines a week. Accompanied by: Self / Same As Patient Allergies ciprofloxacin (From Cipro) Allergy (Intermediate, Verified 04/18/25 11:34) itchy HPI Comments Details: 34 y/o female with migraines, and Pseudo-tumor Cerebri comes for follow up. PMH: Jun [address] Omar Obando referred her for fainting spells since November 2024, increased salt and slow positional changes. Dizziness, and migraines now worse. She was given abx at the urgent care on February 09 for a UTI and started to vomit then presented to [facility], she was admitted and treated for Pyelonephritis, dehydration and emesis. She was malnourished, with low k due to vomiting. Today she c/o dizziness all the time with standing, sitting, and bending down. She had one episode of syncope 2 weeks ago then felt better after this episode. She had an episode of being frozen as she bent over and tried to stand up with hands in the air. she felt trapped in her body for 5min, then she screamed out to her boyfriend and he caught her before she fell. Her migraines were managed with Aimovig in the past and now she has an increased episode of migraines 10/10 in severity daily with dizziness and losing conscious for a few minutes. When she wakes up she feels better dizziness and headaches improve. Her diet has changed since her surgery as she has lost 100lbs. She has nausea, photophobia, phonophobia, tinnitus, eye pain l>r, visual auras with black spots and blurry vision bilaterally. She takes tylenolol or distracts herself and uses heating pad and showers which helps. She was on ubrelvy and this improved her headaches/ migraines, however since her insurance changed she is unable to get this medication. Her [facility] doctor told her not to take ubrelvy or topiramate, but these treatments were effective in the past. Now she is having >15/ episodes of migraines lasting for hours with nause and vomiting each month. She sees her opthamologist once a year for Pseudo-Tumor Cerebri last eval was in Sep 2023 no optic nerve swelling. She is also seeing a neuro in [place], [place] for bilateral CTS. BRYAN, Sleep study was normal in 2021, now she has lost over 100lbs and has GI sensitivity. Labs are reviewed with patient. Her past migraine/headache medications trialed were: -Topiramate which was effective in reducing severity from 10/10 to 7/10. The frequency of her headaches is daily. -BB Propanolol is C/I due to asthma. -Ajovy prito to Aimovig was effective in decreasing the frequency and severity of headaches. Her headaches were 1-2/week and severity was 4-5/ out of ten. -Sumatriptan Injections s/e of blacking out due to sensitivity. [facility] Medical History Carpal tunnel syndrome of right wrist Chronic migraine with aura Obstructive sleep apnea Obesity Asthma PCOS (polycystic ovarian syndrome) Surgical History H/O gastric sleeve Previous section H/O knee surgery Family History Father HTN (hypertension) Migraines Family history of GERD Mother HTN (hypertension) Thyroid disease Cancer Family/Other Asthma Allergy Paternal Grandfather Allergy Asthma Cancer Maternal Grandfather HTN (hypertension) Thyroid disease Social History Alcohol intake: never Patient Tobacco Use Status: Never used Tobacco Substance Use Type: Marijuana 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, 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 Physical Exam Vital Signs: Last Vital Signs Pulse 66 04/18/25 11:30 BP 114/74 04/18/25 11:30 Pulse Ox 99 04/18/25 11:30 Oxygen Delivery Method Room Air 04/18/25 11:30 BMI result Body Mass Index 26.5 Const General: cooperative and no acute distress Nutritional Appearance: obese Orientation/consciousness: patient oriented x3 Eyes Pupils: Equal, round and reactive pupils present Neuro General: patient oriented x3, gait normal, moves all extremities, no focal motor deficits and CN's II-XI intact bilaterally Cranial nerves: Yes CN's II-XII intact bilaterally, Yes Equal, round and reactive pupils present and Yes Normal facial strength present Cognition (Neuro): normal cognition Motor exam (neuro): Abnormal motor strength present and Abnormal muscle tone present Psych Appearance: grossly normal Mental Status: mental status grossly normal Speech and movement: Normal speech and movement present Thought process: Normal thought process present Thought content: Normal thought content present Results Reviewed Results Reviewed: labs reviewed with pt. ED note [facility] reviewed. Assessment & Plan Assessment & Plan (1) Obstructive sleep apnea: Comment: will r/o with psg Code(s): G47.33 - Obstructive sleep apnea (adult) (pediatric) Category: Medical (2) Excessive daytime sleepiness: Code(s): G47.19 - Other hypersomnia Category: Medical (3) Pseudotumor cerebri: Code(s): G93.2 - Benign intracranial hypertension Category: Medical (4) Hx of migraines: Code(s): Z86.69 - Personal history of other diseases of the nervous system and sense organs Category: Medical Plan Excessive daytime fatigue r/o bryan with psg. Headaches / Migraines continue Topiramate 25mg po BID Continue ubrelvy and aimovig per insurance and PA reports from her neurologist at [facility] ( [facility] ) reviewed. Urgent f/o ophthalmology. Orders: Orders RT [facility] in-lab sleep study 04/18/25 G47.19 - Other hypersomnia, G47.33 - Obstructive sleep apnea (adult) (pediatric) Referrals Ophthalmology Referral G93.2 - Benign intracranial hypertension, Z86.69 - Personal history of other diseases of the nervous system and sense organs Medications: New ubrogepant (Ubrelvy) take one tablet every other day for migraines. 50 mg PO ONCE 16 tabs 0RF migraines G93.2 - Benign intracranial hypertension, Z86.69 - Personal history of other diseases of the nervous system and sense organs Refilled erenumab-aooe (Aimovig Autoinjector) 140 mg subcut ONCE 1 mL 6RF 30 days topiramate 25 mg PO BID 60 tabs 6RF Patient Instructions: Sleep Hygiene provided: set a scheduled bedtime and wake time to help regulate the circadian rhythm and balance the release of pituitary hormones. Sleep in a dark room, temperatures below 68 degrees, and no devices n bed. Limit caffeinated products 6 hours prior to bed, and limit fluids 2-4 hours prior to bed. Gentle night yoga, diffusing essential oils, and playing soft music can be relaxing. F/U with opthalmology F/u with [facility] r/o bryan Will initiate meds for migraines/ headaches/ ubrelvy or aimovig per insurance. May start topiramate 25mg po bid. F/u in 3 months Coding Level of Care Code Est Pt Level 4 (74179) Diagnoses Obstructive sleep apnea G47.33 Excessive daytime sleepiness G47.19 Pseudotumor cerebri G93.2 Hx of migraines Z86.69
[2025-04-18 11:30] VITALS: BP 114/74; PULSE 66; O2SAT 99; BMI 26.5
--- OUTSIDE RECORDS SUMMARY | 2025-04-18 12:13 | XMS_ITS ---
[facility] Name [facility] Organization [facility] Care Team Organization Name Specialty Phone Email Start Date End [facility] 06/21/2022 04/01/20 24
--- OUTSIDE RECORDS SUMMARY | 2025-04-18 12:13 | XMS_ITS | Clinical Summary ---
Author Organization [facility] Address [address] [place] [address] Phone Support Name Relationship Address Phone Axel England Domestic partner [address] [facility] [address] [place] [address] Care Team Providers Care Copy Coordinator Name Role Phone Suze Shahid MD Primary Care Provider [phone] Allergies Active Allergy Reactions Criticality Noted Date Comments Ciprofloxacin Rash,Unknown 03/15/2021 Medications erenumab-aooe (Aimovig Autoinjector) 70 mg/mL injection 02/20/20 19 Active ibuprofen (ADVIL,MOTRIN) 400 mg tablet Active simethicone (MYLICON) 80 mg chewable tablet Chew 1 tablet (80 mg total) every 6 (six) hours if needed for flatulence. Active famotidine (PEPCID) 40 mg tabletIndications :Gastroesophageal reflux disease without esophagitis TAKE 1 TABLET BY MOUTH TWICE A DAY 180 tablet 3 12/10/19 25 Active ursodioL (ACTIGALL) 300 mg capsule TAKE 2 CAPSULES BY MOUTH EVERY DAY 180 capsule 1 12/11/19 25 Active pyridoxine (B-6) 100 mg tabletIndications :Intestinal malabsorption following gastrectomy Take 1 tablet (100 mg total) by mouth 1 (one) time each day. 30 tablet 11 12/17/19 25 026 Active albuterol HFA (PROAIR HFA ; PROVENTIL HFA ; VENTOLIN HFA) 90 mcg/actuation inhalerIndication s:Moderate persistent asthma, unspecified whether complicated Inhale 2 puffs by mouth every 4 (four) hours if needed for wheezing. 6.7 g 11 12/26/19 25 Active fluticasone HFA (FLOVENT HFA) 110 mcg/actuation inhalerIndication s:Moderate persistent asthma, unspecified whether complicated Inhale 1 puff by mouth 2 (two) times a day. Rinse mouth with water after use to reduce aftertaste and incidence of candidiasis. Do not swallow. 12 g 5 12/26/19 25 026 Active fluticasone-salme terol (Wixela Inhub) 250-50 mcg/dose diskus inhaler Inhale 1 puff by mouth 2 (two) times a day. Rinse mouth with water after use to reduce aftertaste and incidence of candidiasis. Do not swallow. 1 each 12 04/10/20 25 026 Active topiramate (TOPAMAX) 25 mg tablet Take 1 tablet (25 mg total) by mouth 2 (two) times a day. 025 Discontin ued(Non-c ompliance ) Active Problems Problem Noted Date Diagnosed Date Cysts of both ovaries 10/24/2024 Overview (10/24/2024): 08/2024- para ovarian cyst- torsion precautions reviewed, will continue to monitor Bariatric surgery status 06/27/2024 Pseudotumor cerebri 04/12/2021 BRYAN (obstructive sleep apnea) 04/12/2021 PCOS (polycystic ovarian syndrome) 03/15/2021 Asthma 03/15/2021 Migraine 03/15/2021 Resolved Problems Problem Noted Date Diagnosed Date Resolved Date Class 1 obesity due to exces s calories with serious comorbidity and body mass index (BMI) of 33.0 to 33.9 in adult 07/15/2024 12/31/2024 BMI 39.0-39.9,adult 06/14/2024 01/01/20 25 Encounters Date Type Department Care Team Description 04/18/2025 9:15 AM EDT Ancillary Procedure Pulmonolgy - [address] [phone] Moderate persistent asthma, unspecified whether complicated 04/17/2025 11:30 AM EDT Office Visit Internal Medicine - [address] [phone] Baldo Hollis MD Syncope, unspecified syncope type (Primary Dx); Pseudotumor cerebri; Bariatric surgery status; Foot callus 04/11/2025 10:15 AM EDT Office Visit Bariatric Surgery - [address] [phone] Nicole Lagunas PA Overweight (BMI 25.0-29.9) (Primary Dx); Pseudotumor cerebri 04/10/2025 10:00 AM EDT Consult Pulmonolgy - [address] [phone] Vahid Vuong MD Moderate persistent asthma, unspecified whether complicated 02/12/2025 8:45 AM EDT Telemedicine Internal Medicine - [address] [phone] Aravind Guevara MD Nausea (Primary Dx); Other elevated white blood cell (WBC) count; Hypokalemia; Acute pyelonephritis 02/11/2025 3:02 PM EDT - 02/11/2025 9:[address] [facility] Emergency [address] [place] [phone] Discharge Disposition: Home or Self Care 02/06/2025 9:45 AM EDT Office Visit Bariatric Surgery [address] [phone] Nicole Lagunas PA Overweight (BMI 25.0-29.9) (Primary Dx); Bariatric surgery status; Orthostatic hypotension from Last 3 Months Immunizations Name Administration Dates Next Due Influenza Quadravalent, MDCK , 0.5ml, preservative free (Flucelvax) 6mo and older 06/10/2022 Influenza trivalent, with pr eservative (Fluzone; Afluria) 6mo and older 04/05/2020,05/18/2018,04/21/2017 Pneumococcal polysaccharide 23 valent (Pneumovax 23) 2yo and older 04/18/2019 Tdap Tetanus diptheria acell ular pertussis (Boostrix; Adacel) 7yo and older 05/18/2018 Surgical History Surgery Date Site/Laterality Comments TUBAL LIGATION 2011 PROCEDURE: HISTORICAL TUBAL LIGATION KNEE SURGERY 2012 Right PROCEDURE: HISTORICAL KNEE SURGERY; COMMENT: arthroscopy for dislocated patella w/ meniscus injury SECTION PROCEDURE: HISTORICAL DELIVERY; COMMENT: 2 x OTHER SURGICAL HISTORY PROCEDURE: LUMBAR PUNCTURE LAB ORDERS; COMMENT: 5 x SLEEVE GASTROPLASTY 06/14/2024 Medical History Medical History Date Comments PCOS (polycystic ovarian syndrome) 03/15/2021 DX:PCOS (polycystic ovarian syndrome) Asthma 03/15/2021 DX:Asthma Migraine 03/15/2021 DX:Migraine Morbid obesity with BMI of 4 0.0-44.9, adult ([facility] V24, [facility] V28) 03/15/2021 DX:Morbid obesity wit h BMI of 40.0-44.9, adult ([facility]) Benign intracranial hypertension DX:Benign intracranial hypertension Pseudotumor cerebri Bypass graft mechanical comp lication ([facility] V24) Class 1 obesity due to exces s calories with serious comorbidity and body mass index (BMI) of 33.0 to 33.9 in adult 07/15/2024 BMI 39.0-39.9,adult 06/14/2024 Family History Medical History Relation Name Comments Asthma Daughter Hypertension Father migraines, GERD Prostate cancer Father Diabetes Maternal Grandfather HTN, CA D Breast cancer Maternal Grandmother Diabetes Maternal Grandmother HTN, de mentia Hypertension Mother hyperthyroidism , thyroid cancer Uterine cancer Mother Asthma Paternal Grandfather prostat e cancer Diabetes Paternal Grandmother Asthma Sister pseudotumor cer ebri Asthma Son autism Colon cancer Neg Hx Ovarian cancer Neg Hx Relation Name Status Comments Daughter Alive Father Alive Maternal Grandfather Maternal Grandmother Mother Alive Paternal Grandfather Alive Paternal Grandmother Alive Sister Alive Son Alive Social History Tobacco Use Types Packs/Day Years Used Date Smoking Tobacco: Never Smokeless Tobacco: Never Tobacco Cessation:Counseling Given: Not Answered Alcohol Use Standard Drinks/Week Comments Never 0 [...] care for your loved ones. For example, director of early childhood education or elderly care for an older adult? [...] Orientation Straight 07/27/2024 11 :46 AM EST Obstetrics History Para Term AB IAB SAB Ectopic Multiple Livin g Live Births 2 2 2 2 2 Date Outcome GA Total Labor Labor/2nd/3rd Weight Sex Type Anes PTL Katy A1 A5 Name Clin Term CS-Un spec Living Term CS-Un spec Living Last Filed Vital Signs Vital Sign Reading Time Taken Comments Blood Pressure 98/62 04/17/2025 10:57 AM EDT Pulse 68 04/17/2025 10:57 AM EDT Temperature 36.6 C (97.8 F) 04/11/2025 10:13 AM EDT Respiratory Rate 16 04/10/2025 9:58 AM EDT Oxygen Saturation 100% 04/17/2025 10:57 AM EDT Inhaled Oxygen Concentration - - Weight 72.6 kg (160 lb) 04/17/2025 10:57 AM EDT Height 165.1 cm (5' 5 ) 04/17/2025 10:57 AM EDT Body Mass Index 26.63 04/17/2025 10:57 AM EDT Plan of Treatment Upcoming Encounters Date Type Department Care Team (Late st Contact Info) Description 04/28/2025 9:30 AM EDT Office Visit Internal Medicine [facility] [address] [facility] [address] [place] [phone] John Oscar NP [address] [place] [phone] 05/07/2025 10:45 AM EDT Office Visit Bariatric Surgery [facility] [address] [facility] [address] [place] [phone] Nicole Lagunas PA [address] [place] [phone] 05/09/2025 9:15 AM EDT Consult Orthopedic Surgery [facility] [address] [facility] [address] [place] [phone] Torsten Pressley DPM [address] [facility] [address] [place] [phone] 06/24/2025 10:15 AM EST Office Visit Pulmonolgy [facility] [address] [facility] [address] [place] [phone] Vahid Vuong MD [address] [facility] [address] [place] [address] Health Maintenance Due Date Last Done Comments Hepatitis B Vaccines (1 of 3 - 19+ 3-dose series) 2011 Pneumococcal Vaccine: Pediatrics (0 to 5 Years) and At-Risk Patients (6 to 49 Years) (2 of 2 - PCV) 04/18/2020 04/18/2019 COVID-19 Vaccine (3 - 2024- season) 2025 11/16/2020, 10/19/2020 Influenza Vaccine (#1) 2025 , 04/05/2020, 05/18/2018, Additional history exists Social Influencers of Health Screening 02/12/2026 02/12/2025 DTaP,Tdap,and Td Vaccines (2 - Td or Tdap) 05/18/2028 05/18/2018 Cholesterol Screening (Lipid Panel) 11/26/2028 11/27/2023 Cervical Cancer Screening: HPV 10/10/2029 10/10/2024 HIV Screening Completed 10/10/2024, 07/01/2024 Hepatitis C Screening Completed 10/10/2024, 024 Depression Screening Completed 12/25/2024 HIB Vaccines Aged Out No longer eligi ble based on patient's age to complete this topic HPV Vaccines Aged Out No longer eligi ble based on patient's age to complete this topic Hepatitis A Vaccines Aged Out No long er eligible based on patient's age to complete this topic IPV Vaccines Aged Out No longer eligi ble based on patient's age to complete this topic MMR Vaccines Aged Out No longer eligi ble based on patient's age to complete this topic Meningococcal ACWY Vaccine Aged Out N o longer eligible based on patient's age to complete this topic Meningococcal B Vaccine Aged Out No l onger eligible based on patient's age to complete this topic RSV Immunization Patients Under 20 months Aged Out No longer eligible based on patient's age to complete this topic Varicella Vaccines Aged Out No longer eligible based on patient's age to complete this topic Procedures Procedure Name Priority Date/Time Associated Diagnosis Comments PULMONARY FUNCTION TESTING Routine 04/18/2025 9:18 AM EDT Moderate persistent asthma, unspecified whether complicated COMPREHENSIVE METABOLIC PANEL Routine 04/04/2025 12:10 PM EDT Overweight (BMI 25.0-29.9) Dizziness FOLATE Routine 04/04/2025 12:10 PM EDT Overweight (BMI 25.0-29.9) Dizziness IRON AND TIBC Routine 04/04/2025 12:10 PM EDT Overweight (BMI 25.0-29.9) Dizziness ZINC Routine 04/04/2025 12:10 PM EDT Overweight (BMI 25.0-29.9) Dizziness VITAMIN D 25 HYDROXY Routine 04/04/2025 12:10 PM EDT Overweight (BMI 25.0-29.9) Dizziness VITAMIN B6 Routine 04/04/2025 12:10 PM EDT Overweight (BMI 25.0-29.9) Dizziness VITAMIN B12 Routine 04/04/2025 12:10 PM EDT Overweight (BMI 25.0-29.9) Dizziness VITAMIN B1 Routine 04/04/2025 12:10 PM EDT Overweight (BMI 25.0-29.9) Dizziness SELENIUM SERUM Routine 04/04/2025 12:10 PM EDT Overweight (BMI 25.0-29.9) Dizziness AVINA URINE CULTURE TUBE Routine 03/20/20 25 3:54 PM EDT Dysuria URINALYSIS WITH REFLEX MICROSCOPIC AND CULTURE Routine 03/20/2025 3:54 PM EDT Dysuria URINALYSIS WITH REFLEX MICROSCOPIC AND CULTURE Routine 03/20/2025 3:54 PM EDT Dysuria CBC WITH AUTO DIFFERENTIAL STAT 02/11/2025 5:11 PM EDT COMPREHENSIVE METABOLIC PANEL STAT 02/11/2025 5:11 PM EDT CBC AND DIFFERENTIAL STAT 02/11/2025 5:11 PM EDT HEPATITIS C ANTIBODY Routine 10/10/2024 11:52 AM EST Screen for STD (sexually transmitted disease) HIV 1, 2 ANTIBODY, P24 ANTIGEN WITH REFLEX TO DIFFERENTIATION Routine 10/10/2024 11:52 AM EST Screen for STD (sexually transmitted disease) HPV WITH REFLEX GENOTYPE Routine 10/10/2024 10:54 AM EST Encounter for gynecological examination without abnormal finding LIPID PANEL Routine 11/27/2023 from Last 3 Months or Most Recently Relevant to Health Maintenance Results * Iron and TIBC (04/04/2025 12:10 PM EDT) Iron 89 40 - 150 mcg/dL LAB CHEMISTRY METHOD 04/04/2025 3:02 PM EDT [facility] TIBC 266 250 - 450 mcg/dL LAB CHEMISTRY METHOD 04/04/2025 3:02 PM EDT [facility] Iron Saturation 33 15 - 50 % LAB CHEMISTRY METHOD 04/04/2025 3:02 PM EDT [facility] Blood Venous blood specimen / Unknown Venipuncture / Unknown 04/04/2025 12:10 PM EDT 04/04/2025 12:11 PM EDT Nicole GAMBOA LAB BLOOD ORDERABLES Final R esult [facility] [address] [place] [address], * Zinc (04/04/2025 12:10 PM EDT) Zinc 64 60 - 130 ug/dL 04/07/2025 12:47 PM EDT [facility] Comment: Elevated results may be due to sample collected in a non-certified trace element-free tube. This test was developed and the performance characteristics determined by [facility]. It has not been cleared or approved by the FDA. The laboratory is regulated under CLIA as qualified to perform high-complexity testing. This test is used for patient testing purposes. It should not be regarded as investigational or for research. Test performed at [facility], [address] , [place] [address] Linda Palmer MD, PhD - Clinical Massage Therapist Blood Venous blood specimen / Unknown Venipuncture / Unknown 04/04/2025 12:10 PM EDT 04/04/2025 12:11 PM EDT Nicole GAMBOA LAB BLOOD ORDERABLES Final R esult [facility] [address] [place] [address] * Selenium serum (04/04/2025 12:10 PM EDT) Selenium 107 63 - 160 mcg/L 04/08/2025 5:[address] [facility] Comment: Testing was performed on a specimen submitted in a tube which has not been certified to be free of trace elements. Repeat testing on a specimen collected in a trace element tube is recommended prior to initiation of remedial action or environmental investigation of potential heavy metal sources. Refer to the [place] Directory of Services for proper specimen collection information. This test was developed and its analytical performance characteristics have been determined by [facility] [address] [place], [place]. It has not been cleared or approved by the U.S. Food and Drug Administration. This assay has been validated pursuant to the CLIA regulations and is used for clinical purposes. Test Performed by [facility], [facility] [address], [address] [place] [address] Darinel Chávez M.D., Ph.D., Director of Laboratories , CLIA [id number] Blood Venous blood specimen / Unknown Venipuncture / Unknown 04/04/2025 12:10 PM EDT 04/04/2025 12:11 PM EDT Nicole GAMBOA LAB BLOOD ORDERABLES Final R esult [facility] [address] [place] [address] * Vitamin D 25 hydroxy (04/04/2025 12:10 PM EDT) Vit D, 25-Hydroxy 42.3 30.0 - 80.0 ng/mL LAB CHEMISTRY METHOD 04/04/2025 4:04 PM EDT [facility] Blood Venous blood specimen / Unknown Venipuncture / Unknown 04/04/2025 12:10 PM EDT 04/04/2025 12:11 PM EDT Nicole GAMBOA LAB BLOOD ORDERABLES Final R esult Performing Organization Address City/[facility]/ZIP Co de Phone Number [facility] [address] [place] [address], [place] [phone] * Vitamin B1 (04/04/2025 12:10 PM EDT) [facility] Vitamin B1 Whole Blood 78 38 - 122 ug/L 04/09/2025 8:[address] [facility] Comment: This test was developed and the performance characteristics determined by [facility]. It has not been cleared or approved by the FDA. The laboratory is regulated under CLIA as qualified to perform high-complexity testing. This test is used for patient testing purposes. It should not be regarded as investigational or for research. Test performed at [facility], [address] , [place] [address] Linda Palmer MD, PhD - Clinical Massage Therapist Blood Venous blood specimen / Unknown Venipuncture / Unknown 04/04/2025 12:10 PM EDT 04/04/2025 12:11 PM EDT Nicole GAMBOA LAB BLOOD ORDERABLES Final R esult [facility] [address] [place] [address] * Vitamin B6 (04/04/2025 12:10 PM EDT) [facility] Vitamin B6 (Pyridoxine) Level 27 5 - 50 ug/L 04/08/2025 12:[address] [facility] Comment: This test was developed and the performance characteristics determined by [facility]. It has not been cleared or approved by the FDA. The laboratory is regulated under CLIA as qualified to perform high-complexity testing. This test is used for patient testing purposes. It should not be regarded as investigational or for research. Test performed at [facility], [address] , [place] [address] Linda Palmer MD, PhD - Clinical Massage Therapist Blood Venous blood specimen / Unknown Venipuncture / Unknown 04/04/2025 12:10 PM EDT 04/04/2025 12:11 PM EDT Nicole GAMBAO LAB BLOOD ORDERABLES Final R esult [facility] [address] [place] [address] * Folate (04/04/2025 12:10 PM EDT) [facility] Folate 8.5 2.8 - 17.0 ng/ml LAB CHEMISTRY METHOD 04/04/2025 3:24 PM EDT [facility] Blood Venous blood specimen / Unknown Venipuncture / Unknown 04/04/2025 12:10 PM EDT 04/04/2025 12:11 PM EDT us Nicole GAMBOA LAB BLOOD ORDERABLES Final R esult [facility] [address] [place] [address], * Vitamin B12 (04/04/2025 12:10 PM EDT) [facility] Vitamin B-12 539 250 - 900 pcg/mL LAB CHEMISTRY METHOD 04/04/2025 3:24 PM EDT [facility] Blood Venous blood specimen / Unknown Venipuncture / Unknown 04/04/2025 12:10 PM EDT 04/04/2025 12:11 PM EDT Nicole GAMBOA LAB BLOOD ORDERABLES Final R esult [facility] [address] [place] [address], [place] [phone] * Comprehensive metabolic panel (04/04/2025 12:10 PM EDT) Only the most recent of2 resultswithin the time period is included. [facility] Sodium 142 133 - 145 mmol/L LAB CHEMISTRY METHOD 04/04/2025 3:24 PM [facility] Potassium 3.8 3.5 - 5.5 mmol/L LAB CHEMISTRY METHOD 04/04/2025 3:24 PM [facility] Chloride 110 96 - 110 mmol/L LAB CHEMISTRY METHOD 04/04/2025 3:24 PM [facility] CO2 29 21 - 32 mmol/L LAB CHEMISTRY METHOD 04/04/2025 3:24 PM [facility] Anion Gap 3 3 - 11 LAB CHEMISTRY METHOD 04/04/2025 3:24 PM [facility] Glucose 82 70 - 100 mg/dL LAB CHEMISTRY METHOD 04/04/2025 3:24 PM [facility] BUN 13 5 - 25 mg/dL LAB CHEMISTRY METHOD 04/04/2025 3:24 PM [facility] Creatinine 0.74 0.50 - 1.10 mg/dL LAB CHEMISTRY METHOD 04/04/2025 3:24 PM [facility] eGFR 110 >=60 mL/min/1. 73m2 LAB CHEMISTRY METHOD 04/04/2025 3:24 PM EDT [facility] Comment:Calculation based on the Chronic Kidney Disease Epidemiology Collaboration (CKD-EPI) equation refit without adjustment for race. BUN/Creatinine Ratio 17.6 LAB CHEMISTRY METHOD 04/04/2025 3:24 PM EDT [facility] Calcium 9.0 8.5 - 10.5 mg/dL LAB CHEMISTRY METHOD 04/04[facility]2025 3:[facility] PM [facility] AST (SGOT) 16 10 - 42 unit/L LAB CHEMISTRY METHOD 04/04/2025 3:24 PM [facility] ALT (SGPT) 24 10 - 60 unit/L LAB CHEMISTRY METHOD 04/04/2025 3:24 PM [facility] Alkaline Phosphatase 60 42 - 121 unit/L LAB CHEMISTRY METHOD 04/04/2025 3:24 PM [facility] Total Protein 6.5 6.0 - 8.0 g/dL LAB CHEMISTRY METHOD 04/04/2025 3:24 PM [facility] Albumin 3.6 3.2 - 5.0 g/dL LAB CHEMISTRY METHOD 04/04/2025 3:24 PM [facility] Total Bilirubin 0.6 0.0 - 1.4 mg/dL LAB CHEMISTRY METHOD 04/04/2025 3:24 PM T [facility] Blood Venous blood specimen / Unknown Venipuncture / Unknown 04/04/2025 12:10 PM EDT 04/04/2025 12:11 PM EDT us Nicole GAMBOA LAB BLOOD ORDERABLES Final R esult [facility] [address] [place] [address], [place] [phone] * Urinalysis with reflex microscopic and culture (03/20/2025 3:54 PM EDT) [facility] Specific [place] Urine 1.017 1.003 - 1.030 LAB URINALYSIS - AUTOMATED METHOD 03/20/2025 6:50 PM EDT [facility] pH, Urine 7.0 5.0 - 8.0 pH LAB URINALYSIS - AUTOMATED METHOD 03/20/2025 6:50 PM [facility] Leukocytes, Urine Negative Negative LAB URINALYSIS - AUTOMATED METHOD 03/20/2025 6:50 PM EDT [facility] Nitrite, Urine Negative Negative LAB URINALYSIS - AUTOMATED METHOD 03/20/2025 6:50 PM [facility] Protein, Urine Negative <=Trace mg/dL LAB URINALYSIS - AUTOMATED METHOD 03/20/2025 6:50 PM [facility] Glucose, Urine Negative Negative mg/dL LAB URINALYSIS - AUTOMATED METHOD 03/20/2025 6:50 PM [facility] Ketones, Urine Negative Negative mg/dL LAB URINALYSIS - AUTOMATED METHOD 03/20/2025 6:50 PM [facility] Urobilinogen, Urine 1.0 0.2 - 1.0 mg/dL LAB URINALYSIS - AUTOMATED METHOD 03/20/2025 6:50 PM [facility] Bilirubin, Urine Negative Negative LAB URINALYSIS - AUTOMATED METHOD 03/20/2025 6:50 PM [facility] Blood, Urine Negative Negative LAB URINALYSIS - AUTOMATED METHOD 03/20/2025 6:50 PM [facility] Urine Urine specimen obtained by clean catch procedure / Unknown Non-blood Collection / Unknown 03/20/2025 3:54 PM EDT 03/20/2025 3:54 PM EDT us Nicole GAMBOA LAB URINE ORDERABLES Final R esult [facility] [address] [place] [address], [place] [phone] * Avina urine culture tube (03/20/2025 3:54 PM EDT) [facility] Extra Tube Hold for add-ons. 03/20/2025 7:01 PM EDT [facility] Comment:Auto resulted. Urine Urine specimen obtained by clean catch procedure / Unknown Non-blood Collection / Unknown 03/20/2025 3:54 PM EDT 03/20/2025 3:54 PM EDT Nicole GAMBOA LAB URINE ORDERABLES Final R esult [facility] [address] [place] [address], [place] [phone] * (ABNORMAL) CBC auto differential (02/11/2025 5:11 PM EDT) [facility] WBC 11.5(H) 4.8 - 10.8 K/mcL LAB HEMETOLOGY METHOD 02/11/2025 5:43 PM EDT [facility] RBC 3.90 3.80 - 4.80 M/mcL LAB HEMETOLOGY METHOD 02/11/2025 5:43 PM EDT [facility] Hemoglobin 11.6 11.5 - 16.0 g/dL LAB HEMETOLOGY METHOD 02/11/2025 5:43 PM EDT [facility] Hematocrit 35.0 35.0 - 47.0 % LAB HEMETOLOGY METHOD 02/11/2025 5:43 PM EDT [facility] MCV 90.4 79.0 - 98.0 FL LAB HEMETOLOGY METHOD 02/11/2025 5:43 PM EDT [facility] MCH 30.0 27.0 - 32.0 pcg LAB HEMETOLOGY METHOD 02/11/2025 5:43 PM EDT [facility] MCHC 33.1 32.0 - 37.0 g/dL LAB HEMETOLOGY METHOD 02/11/2025 5:43 PM EDT [facility] RDW 13.8 11.0 - 15.0 % LAB HEMETOLOGY METHOD 02/11/2025 5:43 PM [facility] Platelets 147 130 - 400 K/mcL LAB HEMETOLOGY METHOD 02/11/2025 5:43 PM [facility] MPV 12.0(H) 7.0 - 11.0 FL LAB HEMETOLOGY METHOD 02/11/2025 5:43 PM [facility] NRBC 0.0 <1.0 % LAB HEMETOLOGY METHOD 02/11/2025 5:43 PM [facility] NRBC Absolute 0.00 <0.10 K/mcL LAB HEMETOLOGY METHOD 02/11/2025 5:43 PM [facility] Neutrophils Relative 88.3 % LAB HEMETOLOGY METHOD 02/11/2025 5:43 PM [facility] Lymphocytes Relative 3.6 % LAB HEMETOLOGY METHOD 02/11/2025 5:43 PM [facility] Monocytes Relative 6.9 % LAB HEMETOLOGY METHOD 02/11/2025 5:43 PM [facility] Eosinophils Relative 0.0 % LAB HEMETOLOGY METHOD [facility] Bas[facility] Relative 0.3 % LAB HEMETOLOGY METHOD 02/11[facility]2025 5[facility] Immature Granulocytes Relative 0.9 % LAB HEMETOLOGY METHOD 02/11/2025 5:[facility] Neutrophils Absolute 10.18(H) 1.50 - 7.00 K/mcL LAB HEMETOLOGY METHOD 02/11/2025 5:43 PM EDT [facility] Lymphocytes Absolute 0.41(L) 1.00 - 5.00 K/mcL LAB HEMETOLOGY METHOD 02/11/2025 5:43 PM EDT [facility] Monocytes Absolute 0.80 0.20 - 1.00 K/mcL LAB HEMETOLOGY METHOD 02/11/2025 5:43 PM EDT [facility] Eosinophils Absolute 0.00 0.00 - 0.50 K/[facility] HEMETOLOGY METHOD 02/11/2025 5:43 PM EDT [facility] Basophils Absolute 0.04 0.00 - 0.20 K/[facility] HEMETOLOGY METHOD 02/11/2025 5:43 PM EDT [facility] Immature Granulocytes Absolute 0.10(H) 0.00 - 0.03 K/[facility] HEMETOLOGY METHOD 02/11/2025 5:43 PM EDT [facility] Blood Venous blood specimen / Unknown Venipuncture / Unknown 02/11/2025 5:11 PM EDT 02/11/2025 5:30 PM EDT us Alessandro GAMBOA LAB BLOOD ORDERABLES Final Re sult Performing Organization Address City/[facility]/ZIP Co de Phone Number [facility] [address] [place] [address], * Hepatitis C antibody (10/10/2024 11:52 AM EST) Hepatitis C Antibody Negative Negative LAB CHEMISTRY METHOD 10/10/2024 4:47 PM EST [facility] Blood Venous blood specimen / Unknown Venipuncture / Unknown 10/10/2024 11:52 AM EST 10/10/2024 11:52 AM EST us Betsey Collazo CNM LAB BLOOD ORDERABLES Final Res ult [facility] [address] [place] [address], [place] [phone] * HIV 1,2 antibody, p24 antigen with reflex to differentiation (10/10/2024 11:52 AM EST) [facility] HIV Combo AB/AG Negative Negative LAB CHEMISTRY METHOD 10/10/2024 4:48 PM EST [facility] Blood Venous blood specimen / Unknown Venipuncture / Unknown 10/10/2024 11:52 AM EST 10/10/2024 11:52 AM EST Narrative [facility] - 10/10/2024 4:48 PM EST This assay is a 4th generation assay allowing for earlier detection of HIV infection by detecting the presence of the HIV-1 p24 antigen as well as the traditional antibodies to HIV type 1 (including group O) and type 2. Use of a 4th generation assay is the current CDC recommendation for HIV screening. us Betsey Collazo CNM LAB BLOOD ORDERABLES Final Res ult [facility] [address] [place] [address], [place] [phone] * HPV with reflex genotype (10/10/2024 10:54 AM EST) [facility] HPV Negative Negative LAB MICROBIOLOGY METHOD 10/11/2024 2:02 PM EST [facility] Brushing/Spatula Cervix uteri structure / Unknown 10/10/2024 10:54 AM EST 10/11/2024 7:57 AM EST us Betsey REYES LAB MOLECULAR DIAGNOSTICS ORDE RABLES Final Result [facility] [address] [place] [address], [place] [phone] * (ABNORMAL) Lipid panel (11/27/2023) LDL/HDL Ratio 4 0 - 4 Triglycerides 163(A) 0 - 150 mg/dL Cholesterol 122 0 - 200 mg/dL HDL 35(A) >=40 mg/dL LDL Cholesterol 55 0 - 100 mg/dL Blood Venous blood specimen / Unknown us Historical Provider LAB BLOOD ORDERABLES Elizabeth l Result from Last 3 Months or Most Recently Relevant to Health Maintenance [place] [place] [address] [place] [address] Care Teams Copy Coordinator Relationship Specialty Start Date End Date Suze Shahid MD [address] [phone] PCP - General Internal Medicine 06/03/21
== END 2025-04-18 12:49 | disposition home or self-care (01) ==
LOC: HO.HSMS 11:06
PROVIDERS: PCP Internal Medicine; Visit Provider Physician Assistant Medical
DX: G47.33 Obstructive sleep apnea (adult) (pediatric) (principal); G47.19 Other hypersomnia; G93.2 Benign intracranial hypertension; Z86.69 Personal history of other diseases of the nervous system and sense organs
CPT/HCPCS: 99214

== ENCOUNTER → 2025-04-18 11:05 | Outpatient (BNVA) | payer OTHER, SELFPAY | PROVIDERS: PCP Internal Medicine; Visit Provider Physician Assistant Medical | DX: R42 Dizziness and giddiness (principal); G47.19 Other hypersomnia; G93.2 Benign intracranial hypertension; Z86.69 Personal history of other diseases of the nervous system and sense organs; G43.909 Migraine, unspecified, not intractable, without status migrainosus | CPT/HCPCS: 99212 ==

== ENCOUNTER → 2025-05-30 20:30 | Outpatient (REF) | payer OTHER, SELFPAY ==
--- OUTSIDE RECORDS SUMMARY | 2025-05-30 20:46 | XMS_ITS | Encounter Summary ---
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 05/13/2025 ROCT - [id number] (Ok to Book) 05/13/2025 ROCT Enrollment 05/13/2025 Enrolling luis angel t for 14 day ROCT Encounter Details Date Type Department Care Team (Late st Contact Info) Description 05/13/2025 Telephone [facility] [address] [place] [phone] Shahid Martínez MD [address] [place] [address] [address] [place] [phone] Social History Tobacco Use Types Packs/Day Years Used Date Smoking Tobacco: Never Passive Smoke Exposure: Past Smokeless Tobacco: Never Alcohol Use Standard Drinks/Week Comments Yes 0 (1 standard drink = 0.6 oz pur e alcohol) rarely Housing Instability Answer Date Recorde d Are [...] care for your loved ones. For example, children's lunchroom supervisor or elderly care for an older adult? Unable to respond 02/12/2025 Employment and Income Answer Date Recor ded During the last four weeks, have you been actively looking for work? Unable to respond 02/12/2025 Living Situation Answer Date Recorded What is your living situation? Unrecognized valu e 02/12/2025 Comments No Sex and Gender Information [...] Author No 12/14/2024 8:00 AM Phoebe Arce, RN * Are you blind or do you have serious difficulty seeing, even when wearing glasses? Answer Date of Assessment Author No 12/14/2024 8:00 AM Phoebe Arce, RN * Do you have serious difficulty [...] 8:00 AM EDT Phoebe Lawrence RN documented as of this encounter Mental Status * Because of a physical, mental, or emotional condition, do you have serious difficulty concentrating, remembering, or making decisions? (5 years old or older) Answer Entry Date Author No 12/14/2024 8:00 AM VISHALT Phoebe Lawrence RN documented in this encounter Progress Notes * Kenneth Jimenez MA - 05/27/2025 8:54 AM EDT 05/27/25: Enrolling patient for 14 day ROCT per Dx: Syncope I called and spoke to patient, she is aware [facility] will reach out to her to schedule home delivery. * Adriana Rock MA - 05/23/2025 7:27 AM EDT Tentative date: Patient will be enrolled for 14 day ROCT with [facility] for home delivery per Dr. Martínez Dx: Syncope. * Teri Nicole - 05/22/2025 1:40 PM EDT Prior Auth Status: APPROVED Auth Number: [id number] Prior Auth Validity Dates: 05.16.25-08.16.25 CPT: 33261/82243 - ROCT DX: R55 Duration: 14 Days [employer]: [employer] * Teri Page 05/16/2025 7:51 AM EDT PA for CPT code 20942/97681 submitted and pending with insurance. * Arianna Yusuf RN - 05/13/2025 9:18 AM EDT ROCT please [id number] * Teri Nicole - 05/13/2025 9:11 AM EDT Good Morning, Can you please confirm which type of monitor is being ordered. Thank You. documented in this encounter Plan of Treatment Upcoming Encounters Date Type Department Care Team (Late st Contact Info) Description 06/10/2025 9:15 AM EDT Office Visit Orthopedic Surgery - [place] [address] [place] [phone] Torsten Pressley DPM 175 [facility] [address] [place] [phone] 06/10/2025 11:00 AM EDT Office Visit Bariatric Surgery [place] [address] [facility] [address] [place] [phone] Paola Guzman MD [address] [place] [phone] 06/24/2025 10:15 AM EST Office Visit Pulmonology - [place] [address] [place] [phone] Vahid Vuong MD 175 [facility] [address] [place] [address] 08/01/2025 7:40 AM EST Office Visit [facility] [address] [place] [address] Teresa Byers, RACHEL [address] [place] [address] Dr [address] [place] [address] documented as of this encounter Visit Diagnoses Not on filedocumented in this encounter Additional Health Concerns Assessment Noted Time PHQ-9 Depression Total Score: 2 12/26/19 25 9:18 AM EDT documented as of this encounter Care Teams Business Excellence Leader Relationship Specialty Start Date End Date Suze Shahid MD 175 [facility] [address] [place] [address] PCP - General Internal Medicine 06/03/21 documented as of this encounter
--- OUTSIDE RECORDS SUMMARY | 2025-05-30 20:46 | XMS_ITS | Data Portability ---
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 08 07 17. Her daughter was sledding towards her. She went between her legs, grabbing one leg and twisting her left knee. Crack and popping sensation. Prior right knee surgery 2011 in [place]. She had likely a displaced bucket handle meniscus tear at that time while she was and had surgery after . Seen at [facility]: Xrays there and sunrise here normal. Was In immobilizer and crutches. MRI left knee: minimal fraying of the medial meniscus--report comments on tear in the medial and lateral mensicus which I think is an overcall. ACL injury--high grade tear--may be some intact fibers. No flipped fragments. Mild sprain LCL and MCL. She was much better. Working with PT. She did not have recurrent instability. Twisting injury 7 3 18. At work. Kneeling, felt pop. Rubbed muscle to relief pain. Kneeled again, knee felt like it shifted. Limping. Seen at [facility] ER. We discussed options last visit re her MRI results--the fraying in the meniscus does not require surgery. I reviewed with her that in some cases the ACL injury may require surgery. She reports she does not do sports or pivoting activities. She was improved. Now more pain since she bent down and twisted knee. Sharp lateral pain. Using brace. Crutch. Seen in ER 8 8 18. She has a longer brace (medium dominguez brace). She will do the exercises that she learned at PT. Ice. ROM. She would like to avoid surgery however now is having more issue. New MRI IMPRESSION: New complex tear of the posterior third of the lateral meniscus with adjacent parameniscal cyst formation. Stress changes of the lateral collateral ligament. ACL sprain injury and partial-thicknes s tear. Adjacent 5 mm rounded hypointensity may represent a small loose body, focus of synovitis or the sequela of prior injury. Mild distal quadriceps and distal patellar tendinosis. Suprapatellar fat pad edema, a finding which can be associated with quadriceps impingement. Mild patellar articular cartilage thinning and fissuring. Small joint effusion and small Poe's cyst. 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 Note given that she may continue working with restriction of 6 hour shift, no prolonged standings. no lift more than 10 lbs. 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 Has had many trips to hospital recently with headaches related to her neuro condition. She has seen her PCP and her neurologist regarding having surgery. She continues to have instability episodes in her knee. Doing PT 3 x per week. Still working. We discussed surgery vs non surgery again last visit. Her ACL injury is high grade and she continues to have instability. We discussed left knee ACL reconstruction, meniscus repair or meniscectomy, limited synovectomy, chondroplasty, and possible loose body removal. We discussed rehab involved with this. We discussed graft options. Will plan hamstring autograft with backup allograft. Will work on approval for surgery and schedule once approved. She will be out of work likely at least 3 months after surgery Samantha returns for follow up. Her current restrictions at work at for 4-6 hour shifts but they have her working up to 12 hour shifts. She has had several locking and buckling episodes at work to the point of needing to use a cart to leave work at the end of the day. She uses a brace. She uses Ice. Continues PT. She reported at prior visit she has received a call from her workers compensation claims adjuster that her case was determined by them not to be work related. She is having continued medial left knee pain. Has lost 25lbs. Has not had another instability episode yet since last visit. She has been very committed to continue working. Will go to full shifts. She is working on strengthening and weight loss. I think strengthening and weight loss will certainly be beneficial in given her a better outcome after an eventual surgery. I have recommended she discuss with her PCP seeing a radio station engineer re a safe weight loss plan. She will ice and do strengthening and will update us on progress. jmoses Not available 09/12/2018 16:35:07 12/12/2018 12/12/2018 Left knee injury. 12 25 17. Her daughter was sledding towards her. She went between her legs, grabbing one leg and twisting her left knee. Crack and popping sensation. Prior right knee surgery 2011 in [place]. She had likely a displaced bucket handle meniscus tear at that time while she was and had surgery after . Seen at [facility]: Xrays there and sunrise here normal. Was In immobilizer and crutches. MRI left knee: minimal fraying of the medial meniscus--report comments on tear in the medial and lateral mensicus which I think is an overcall. ACL injury--high grade tear--may be some intact fibers. No flipped fragments. Mild sprain LCL and MCL. Twisting injury 7 3 18. At work. Kneeling, felt pop. Rubbed muscle to relief pain. Kneeled again, knee felt like it shifted. Limping. Seen at [facility] ER. We discussed options last visit re her MRI results--the fraying in the meniscus does not require surgery. I reviewed with her that in some cases the ACL injury may require surgery. She reports she does not do sports or pivoting activities. Seen in ER 8 8 18. New MRI IMPRESSION: New complex tear of the posterior third of the lateral meniscus with adjacent parameniscal cyst formation. Stress changes of the lateral collateral ligament. ACL sprain injury and partial-thicknes s tear. Adjacent 5 mm rounded hypointensity may represent a small loose body, focus of synovitis or the sequela of prior injury. Mild distal quadriceps and distal patellar tendinosis. Suprapatellar fat pad edema, a finding which can be associated with quadriceps impingement. Mild patellar articular cartilage thinning and fissuring. Small joint effusion and small Poe's cyst. 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 We discussed surgery vs non surgery again last visit. Samantha returns for follow up. Overall managing. Has lost 25lbs. Has not had another instability episode yet. She is working on weight loss. Having issues with chronic migraine headaches. She is seeing weight loss center at [facility] with plans for gastric bypass. She will see us in follow up in 3-4 months. jmoses Not available 12/12/2018 19:04:04 04/09/2019 04/09/2019 Left knee injury. 12 25 17. Her daughter was sledding towards her. She went between her legs, grabbing one leg and twisting her left knee. Crack and popping sensation. Prior right knee surgery 2011 in [place]. She had likely a displaced bucket handle meniscus tear at that time while she was and had surgery after . Seen at [facility]: Xrays there and sunrise here normal. Was In immobilizer and crutches. MRI left knee: minimal fraying of the medial meniscus--report comments on tear in the medial and lateral mensicus which I think is an overcall. ACL injury--high grade tear--may be some intact fibers. No flipped fragments. Mild sprain LCL and MCL. Twisting injury 7 3 18. At work. Kneeling, felt pop. Rubbed muscle to relief pain. Kneeled again, knee felt like it shifted. Limping. Seen at [facility] ER. We discussed options last visit re her MRI results--the fraying in the meniscus does not require surgery. I reviewed with her that in some cases the ACL injury may require surgery. She reports she does not do sports or pivoting activities. Seen in ER 8 8 18. Prior MRI IMPRESSION: New complex tear of the posterior third of the lateral meniscus with adjacent parameniscal cyst formation. Stress changes of the lateral collateral ligament. ACL sprain injury and partial-thicknes s tear. Adjacent 5 mm rounded hypointensity may represent a small loose body, focus of synovitis or the sequela of prior injury. Mild distal quadriceps and distal patellar tendinosis. Suprapatellar fat pad edema, a finding which can be associated with quadriceps impingement. Mild patellar articular cartilage thinning and fissuring. Small joint effusion and small Poe's cyst. 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 She has been seen at [facility] weight loss center. She has decreased her weight as well. 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 She is doing a boot camp program with modifications. We discussed surgery vs non surgery again Not having carl instability. Having some cracking and pain with certain activities. Samantha returns for follow up. Overall managing with regards to her knee. She has been seen at [facility] weight loss center. She has decreased her weight as well. Having some issues as she is on medication for her neuro condition that increases her weight/fluid. She has follow up with weight loss center. I would certainly hold off on any knee surgery until after she has attained weight loss. I think weight loss with help her knee pain. She reports that work comp has now denied her case. She is working with an patent attorney. Follow up recheck 4 months. jmoses Not available 04/09/2019 12:04:58 06/28/2019 06/28/2019 Left knee injury. 12 25 17. Her daughter was sledding towards her. She went between her legs, grabbing one leg and twisting her left knee. Crack and popping sensation. Prior right knee surgery 2011 in [place]. She had likely a displaced bucket handle meniscus tear at that time while she was and had surgery after . Seen at [facility]: Xrays there and sunrise here normal. Was In immobilizer and crutches. MRI left knee: minimal fraying of the medial meniscus--report comments on tear in the medial and lateral mensicus which I think is an overcall. ACL injury--high grade tear--may be some intact fibers. No flipped fragments. Mild sprain LCL and MCL. Twisting injury 7 3 18. At work. Kneeling, felt pop. Rubbed muscle to relief pain. Kneeled again, knee felt like it shifted. Limping. Seen at [facility] ER. We discussed options last visit re her MRI results--the fraying in the meniscus does not require surgery. I reviewed with her that in some cases the ACL injury may require surgery. She reports she does not do sports or pivoting activities. Seen in ER 8 8 18. Prior MRI IMPRESSION: New complex tear of the posterior third of the lateral meniscus with adjacent parameniscal cyst formation. Stress changes of the lateral collateral ligament. ACL sprain injury and partial-thicknes s tear. Adjacent 5 mm rounded hypointensity may represent a small loose body, focus of synovitis or the sequela of prior injury. Mild distal quadriceps and distal patellar tendinosis. Suprapatellar fat pad edema, a finding which can be associated with quadriceps impingement. Mild patellar articular cartilage thinning and fissuring. Small joint effusion and small Poe's cyst. 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 She has been seen at [facility] weight loss center. She has decreased her weight as well. 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 She is doing a boot camp program with modifications. Samantha returns for follow up. Overall was managing. Has lost 25lbs. Had not had another instability episode yet. She is working on weight loss. She has been seen at [facility] weight loss center. She has decreased her weight as well. 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 Was doing workout. More pain in knee 11 13 19. On crutches and brace. Xrays: no fracture. We discussed again. She has ongoing complex issues related to her neuro condition and attempts at weight loss. She will use brace. May try to resume workouts with care. She has discussed having weight loss surgery and has discussed having a BUSINESS EDITOR shunt placed. She has follow up with weight loss center. I would certainly hold off on any knee surgery until after she has attained weight loss. I think weight loss with help her knee pain. She reports that work comp has now denied her case. She is working with an patent attorney. Follow up recheck 1 month jmoses Not available 06/30/2019 11:53:48 03/04/2020 03/04/2020 Right knee injury. 03 02 2020. Stepped on friend's porch. Wood underneath broke and her foot went down into hole. Twisted knee. No Pop in knee at time of injury. Pain since. No Mechanical symptoms. No Giving way. Medial and posterior bruising. Lateral thigh bruising. Xrays [facility] Right knee No Effusion. No fracture. Preserved joints spaces. Xrasy [facility] femur Normal. Right knee/leg injury. Prior surgery right knee many years ago No mechanical symptoms. More likely hamstring strain and contusion. I doubt there is any ligament or meniscus tear. Home exercise Ice. Follow up televisit in 4-6 weeks. If no gains, consider discussing PT Her left knee has been managing well. Temperature was normal and negative covid symptom questions at check-in. Patient wore mask and was called into office and was brought in only when a room was available and ready. jmoses Not available 03/04/2020 09:58:12 Plan of Treatment Reminders Order Date Submit Date Provider Last Modified By Organization Details Last Modified Time Details Appointments None record ed. Lab None record ed. Referral None record ed. Procedures None record ed. Surgeries None record ed. Imaging XR, knee 019 06/28/20 19 jmoses In-Office Order, Internal Use Only DO Not Attach Compendium DO Not Attach Compendium, Do Not Delete/merge, [id number] 9 11:53:51 Medication Orders None record ed. Patient TargetsNo targets recorded. Patient Instructions Encounter Date Encounter Id Patient Instructions Last Modified By Organization Details Last Modified Time 09/12/2018 [id number] knee sprain: car e instructions jmoses Not available 09/13/2018 15:31:34 note to return t o work/school - Patient was seen in our office today for a follow up from a left knee injury. Patient can return to work working full shifts. jmoses Not available 09/13/2018 15:31:34 knee pain or injury: care instructions jmoses Not available 09/13/2018 15:31:34 Both conservativ e and surgical treatment options discussed with patient. Risks and benefits of surgery discussed with patient. Surgery will involve a left knee arthoscopy and Anterior Cruciate Ligament reconstruction. At the same time, I will address any meniscus tearing and cartilage injury. This involves taking out the torn pieces of cartilage. If the meniscus tear is amenable to repair, they understand we will attempt to repair the meniscus--approxim ately 70 % of these tears will heal, however the remaining 30% may require a second surgery to remove the torn, unhealed portion of meniscus. We discussed graft options including autograft and cadaver allograft. Given graft options, the patient wishes to proceed with hamstring autograft. They understand that if their hamstrings are found not to be adequate at the time of surgery, we would switch to a cadaver allograft. The risks of the surgery which include but are not limited to bleeding, infection including graft transmission, nerve injury, blood vessel injury, stiffness, blood clots and need for more surgery have been discussed with the patient who demonstrates understanding and states that he/she wishes to proceed with surgery. We have discussed the nature of the procedure, and the recovery process. We will proceed with surgical intervention. We discussed left knee ACL reconstruction, meniscus repair or meniscectomy, limited synovectomy, chondroplasty, and possible loose body removal. Perioperative plan discussed with patient. Perioperatively, they will be receiving IV fluids, IV Antibiotics, and IV pain medication. jmoses Not available 09/12/2018 14:20:28 12/12/2018 [id number] knee sprain: car e instructions jmoses Not available 12/12/2018 19:04:12 knee pain or injury: care instructions jmoses Not available 12/12/2018 19:04:12 04/09/2019 [id number] knee sprain: car e instructions jmoses Not available 04/09/2019 12:03:38 knee pain or injury: care instructions jmoses Not available 04/09/2019 12:03:38 06/28/2019 [id number] knee sprain: car e instructions jmoses Not available 06/30/2019 11:53:50 knee pain or injury: care instructions jmoses Not available 06/30/2019 11:53:51 Reason for Referral None Reported. Results Created Date Observation Date Name Description Value Unit Range Abnormal Flag Note LastModifiedBy Organization Detail LastModifiedTime 03/10/20 20 03/02/2020 XR, knee, 4 or more view No observ ation record ed. [email or web address] Available 02/12 11:00:57 03/10/2003/02/2020 XR, femur , 2 or more view No observ ation record ed. [email or web address] Available 02/12 11:03:43 Result Notes None recorded. Problems No Known Problems Medical Equipment None Reported. Allergies Allergen ID Allergen Name Allergen Category Reaction Reaction Severity Criticality Documentation Date Start Date Code Code System Note Provider Name and Address Organization Details Recorded Time [id number] Cipro medicatio n Not available Not available Not available 08/16/2017 91881 3 RxNorm Imelda monreal [place] - [facility] 8 09:01:07 Medications Name Sig Start Date Stop Date Status Note LastModified by Organization Details LastModified Time cyclobenzapr ine 10 mg tablet active Not Available Not Available Not Available furosemide 40 mg tablet active Not Available Not Available Not Available medroxyproge sterone 10 mg tablet active Not Available Not Available No t Available promethazine -DM 6.25 mg-15 mg/5 mL oral syrup active Not Available Not Available Not Available naproxen 375 mg tablet active Not Available Not Available No t Available azithromycin 250 mg tablet active Not Available Not Available Not Available sumatriptan 100 mg tablet active Not Available Not Available Not Available Nystop 100,000 unit/gram topical powder active Not Available Not Available Not Available ondansetron HCl 4 mg tablet active Not Available Not Available Not Available prednisone 20 mg tablet active Not Available Not Available Not Available propranolol ER 60 mg capsule,24 hr,extended release active Not Available Not Available Not Available acetazolamid e 250 mg tablet TAKE 2 TABLETS BY MOUTH TWICE A DAY active Not Available Not Available No t Available topiramate 25 mg tablet active Not Available Not Available Not Available tramadol 50 mg tablet active Not Available Not Available No t Available butalbital-a cetaminophen -caffeine 50 mg-325 mg-40 mg tablet TK 2 TS PO Q 6 H FOR 3 DAYS PRF CAMARILLO active Not Available Not Available Not Available potassium chloride ER 20 mEq tablet,exten ded release(part /cryst) active Not Available Not Available Not Available erythromycin 5 mg/gram (0.5 %) eye ointment active Not Available Not Available Not Available oseltamivir 75 mg capsule active Not Available Not Available Not Available nystatin 100,000 unit/gram topical cream active Not Available Not Available Not Available clotrimazole -betamethaso ne 1 %-0.05 % topical cream active Not Available Not Available Not Available prednisone 50 mg tablet active Not Available Not Available Not Available indomethacin 25 mg capsule active Not Available Not Available Not Available ibuprofen 400 mg tablet active Not Available Not Available Not Available butalbital-a spirin-caffe ine 50 mg-325 mg-40 mg capsule active Not Available Not Available N ot Available diclofenac sodium 25 mg tablet,delay ed release active Not Available Not Available N ot Available omeprazole 20 mg capsule,rogerio yed release active Not Available Not Available Not Available Cheratussin AC 10 mg-100 mg/5 mL oral liquid active Not Available Not Available Not Available albuterol sulfate HFA 90 mcg/actuatio n aerosol inhaler INHALE TWO (2) PUFF(S) BY MOUTH FOUR (4) TIMES PER DAY NEEDED active Not Available Not Available No t Available Vitamin D2 1,250 mcg (50,000 unit) capsule active Not Available Not Available Not Available topiramate 100 mg tablet active Not Available Not Available Not Available fluticasone propionate 50 mcg/actuatio n nasal spray,suspen ryne active Not Available Not Available Not Available naratriptan 2.5 mg tablet active Not Available Not Available Not Available loratadine 10 mg tablet active Not Available Not Available Not Available naproxen 500 mg tablet TAKE ONE (1) TABLET(S) BY MOUTH TWO (2) TIMES PER DAY NEEDED active Not Available Not Available No t Available metocloprami de 10 mg tablet TK 1 T PO QID FOR 10 DAYS PRF CAMARILLO OR NAUSEA active Not Available Not Available No t Available oxycodone 5 mg tablet active Not Available Not Available No t Available sumatriptan 6 mg/0.5 mL subcutaneous pen injector active Not Available Not Available Not Available Flovent HFA 110 mcg/actuatio n aerosol inhaler active Not Available Not Available Not Available furosemide active Not Available Not Av ailable Not Available potassium active Not Available Not Bernice ilable Not Available topiramate active Not Available Not Av ailable Not Available sumatriptan 4 mg/0.5 mL subcutaneous pen injector active Not Available Not Available Not Available cholecalcife rol (vitamin D3) 25 mcg (1,000 unit) tablet active Not Available Not Available Not Available butalbital-a cetaminophen -caffeine 50 mg-300 mg-40 mg capsule active Not Available Not Available N ot Available Aimovig Autoinjector 70 mg/mL subcutaneous auto-injecto r active Not Available Not Available Not Available Aimovig Autoinjector 140 mg/mL subcutaneous auto-injecto r active Not Available Not Available Not Available Flucelvax Quad (PF) 60 mcg (15 mcg x 4)/0.5 mL IM syringe inject 0.5 milliliters intramuscul ramon active Not Available Not Available No t Available Flulaval Quad (PF) 60 mcg (15 mcg x 4)/0.5 mL IM syringe ADM 0.5ML IM UTD active Not Available Not Available No t Available Vitals Date Recorded Body height Body mass index (BMI) Body weight Provider Name and Address Organization Details Last Updated DateTime 09/12/2018 167.64 cm 46.8 kg/m2 336006.79 g parris king [facility] 09/12/2018 14:08:34 Date Recorded Body height Body mass index (BMI) Body weight Provider Name and Address Organization Details Last Updated DateTime 12/12/2018 167.64 cm 46.8 kg/m2 498009.79 g kandi maurice [facility] 12/12/2018 14:44:06 Date Recorded Body height Body mass index (BMI) Body weight Provider Name and Address Organization Details Last Updated DateTime 03/04/2020 167.64 cm 46.8 kg/m2 359785.[facility] 09:08:48 Date Recorded Body height Body mass index (BMI) Body weight Provider Name and Address Organization Details Last Updated DateTime 04/07/2020 167.64 cm 46.8 kg/m2 235177.79 [facility]/07/2020 08:17:47 Date Recorded Body height Body mass index (BMI) Body weight Provider Name and Address Organization Details Last Updated DateTime 04/09/2019 167.64 cm 46.8 kg/m2 039266.79 g Kaelyn Lehman [facility] 04/09/2019 11:01:51 Date Recorded Body height Body mass index (BMI) Body weight Provider Name and Address Organization Details Last Updated DateTime 06/28/2019 167.64 cm 46.8 kg/m2 217696.79 g [facility] 06/28/2019 14:27:45 Social History Question Answer Notes LastModified by Organizat ion Details LastModified Time Tobacco Smoking Status Never Smoker Imelda monreal [facility] 08/16/2017 09:02:28 What Was The Date Of Your Most Recent Tobacco Screening? 12/12/2018 Information n ot available 03/07/2019 Sex: Unknown Functional Status None recorded. Mental Status None recorded. Family History Relationship Description Onset Age of this Age Resolved Age Notes LastModified by Organization Details LastModified Time Unspecified Relation Malignant neoplastic disease blaine Not available 2017 09:01:56 Unspecified Relation Diabetes mellitus blaine Not available 2017 09:02:08 Unspecified Relation Heart disease blaine Not available 2017 09:02:15 Unspecified Relation Hypertensive disorder blaine Not available 2017 09:02:23 Medical History No medical history recorded. Gynecological HistoryNo gynecological history recorded. Obstetrics History GPAL:G 0 P 0 0 0 0 Past Encounters Encounter ID Performer Location Encounter Start Date Encounter Closed Date Diagnosis/Indication Diagnosis SNOMED-CT Code Diagnosis ICD10 Code Diagnosis IMO Codes Diagnosis Note [id number] MD BRYAN [address] [place] [address] 08/16/2017 08:40:11 08/16/2017 10:28:01 Sprain of knee 28586277 S83.92XA [id number] MD BRYAN Hastings [address] [place] [address] 08/23/2017 10:38:12 08/23/2017 11:21:14 Knee pain 02324274 M25.562 Sprain of knee 20608089 S83.92XA [id number] MD BRYAN Hastings [address] [place] [address] 09/22/2017 13:01:17 09/22/2017 13:39:27 Sprain of knee 27342127 S83.92XA Knee pain 64864256 M25.5 62 [id number] MD BRYAN Hastings [address] [place] [address] 11/17/2017 09:44:02 11/17/2017 10:31:53 Sprain of knee 92098387 S83.92XA Knee pain 59041122 M25.5 62 [id number] MD BRYAN Hastings [address] [place] [address] 02/13/2018 10:27:02 02/13/2018 11:52:33 Rupture of anterior cruciate ligament 173653443 M23.612 Sprain of knee 56946735 S83.92XA Knee pain 28069704 M25.5 62 [id number] MD BRYAN Hastings [address] [place] [address] 02/27/2018 08:34:45 02/27/2018 09:19:34 Rupture of anterior cruciate ligament 105259227 M23.612 Sprain of knee 50842904 S83.92XA Knee pain 40080254 M25.5 62 [id number] MD BRYAN Hastings [address] [place] [address] 03/27/2018 14:10:59 03/27/2018 15:37:08 Rupture of anterior cruciate ligament 803611563 M23.612 Sprain of knee 88614810 S83.92XA Knee pain 51964383 M25.5 62 [id number] MD BRYAN Hastings [address] [place] [address] 04/20/2018 09:05:45 04/20/2018 09:30:19 Rupture of anterior cruciate ligament 807328340 M23.612 Sprain of knee 66050448 S83.92XA Knee pain 09625855 M25.5 62 [id number] MD BRYAN Hastings [address] [place] [address] 06/01/2018 08:43:17 06/01/2018 09:08:32 Rupture of anterior cruciate ligament 826420763 M23.612 Sprain of knee 52387942 S83.92XA Knee pain 48977662 M25.5 62 [id number] MD BRYAN Hastings [address] [place] [address] 07/13/2018 08:13:13 07/13/2018 08:52:57 Rupture of anterior cruciate ligament 144037068 M23.612 Sprain of knee 62732246 S83.92XA Knee pain 83082643 M25.5 62 [id number] MD BRYAN Hastings [address] [place] [address] 07/17/2018 14:39:11 07/17/2018 15:39:25 Pain in right knee 7291062614 35220 M25.561 Osteoarthr itis of right knee joint 6709280850 67103 M17.11 [id number] MD BRYAN Hastings [address] [place] [address] 09/12/2018 14:06:14 09/12/2018 14:36:51 Rupture of anterior cruciate ligament 972081998 M23.612 Sprain of knee 27389023 S83.92XA Knee pain 47343024 M25.5 62 [id number] MD BRYAN Hastings [address] [place] [address] 12/12/2018 14:42:34 12/12/2018 15:12:14 Rupture of anterior cruciate ligament 686292681 M23.612 Sprain of knee 12162126 S83.92XA Knee pain 79890355 M25.5 62 [id number] MD BRYAN Hastings [address] [place] [address] 04/09/2019 11:00:14 04/09/2019 11:16:26 Rupture of anterior cruciate ligament 477246414 M23.612 Sprain of knee 18758926 S83.92XA Knee pain 44202544 M25.5 62 [id number] MD BRYAN Hastings [address] [place] [address] 06/28/2019 14:26:48 06/28/2019 15:27:25 Rupture of anterior cruciate ligament 320138197 M23.612 Sprain of knee 16800456 S83.92XA Knee pain 12538213 M25.5 62 [id number] MD BRYAN Hastings [address] [place] [address] 03/04/2020 09:04:35 03/04/2020 09:59:10 Pain in right knee 0725510202 41578 M25.561 Sprain of right knee 326 6805736 5194080 S83.91XA Health Concerns Section Related Observation LastModified by Organization Detai ls LastModified Time None Recorded Concern Status LastModified by Organization Details LastModified Time None Recorded Advance Directives Directive None Recorded Payers Insurance Date Sequence Insurance Name Policy Number Policy Encinas Covered Member ID Encinas Member ID Guarantor Name 11/15/2017 1 [place] [facility] Samantha Hammondanda [id number] Samantha Casas 02/13/2018 1 [facility] [employer] - TOGETHER (MEDICAID HMO) Samantha Hammondanda [id number] Samantha Hammondanda 04/07/2020 1 [facility] PLAN (MEDICAID REPLACEMENT - HMO) Samantha Casas [id number] Samantha Hammondanda 03/03/2020 [employer] [facility] Samantha Casas Notes Date Note Type Note Provider Name and Address Organization Details Recorded Time 9 text/html zzJMM KneeReported by PatientHPIFor associated symptoms, patient reportsbuckling,catching/ locking,popping/clicking, grinding, andinstabilitybut reportsno weakness,no numbness,no tingling,no swelling,no redness,no warmth,no ecchymosis,no instability,no radiation down leg,no drainage,no fever, andno chills. For location, patient reportsleft,medial, andlateral. For context, patient reportsacute injury: __. For severity, patient reportsmoderateandsevere. For quality, patient reportsworsening. For timing, patient reportsworse with activity. For alleviating factors, patient reportsrest/activity restriction,assistive device: crutches, andbrace. For aggravating factors, patient reportstwisting. For previous surgery, patient reportsnone. For prior imaging, patient reportsx rayandmri. For previous injections, patient reportsnone. For previous pt, patient reportshelped temporarilyandhelped significantly.ROS as noted in the HPI Left knee injury. 12 25 17. Her daughter was sledding towards her. She went between her legs, grabbing one leg and twisting her left knee.Crack and popping sensation.Prior right knee surgery 2011 in [place]. She had likely a displaced bucket handle meniscus tear at that time while she was and had surgery after .Seen at [facility]: Xrays there and sunrise here normal.In immobilizer and crutches. MRI left knee: minimal fraying of the medial meniscus--report comments on tear in the medial and lateral mensicus which I think is an overcall.ACL injury--high grade tear--may be some intact fibers. No flipped fragments. Mild sprain LCL and MCL. She was much better. Working with PT.She did not have recurrent instability. Twisting injury 7 3 18. At work. Kneeling, felt pop. Rubbed muscle to relief pain. Kneeled again, knee felt like it shifted.Limping.Seen at [facility] ER.Was on crutches. Has had many trips to hospital recently with headaches related to her neuro condition. She was improved.Now more pain since she bent down and twisted knee. Sharp lateral pain.Using brace. Crutch.Seen in ER 8 8 18. New MRI IMPRESSION: New complex tear of the posterior third of the lateral meniscus with adjacent parameniscal cyst formation. Stress changes of the lateral collateral ligament. ACL sprain injury and partial-thickness tear. Adjacent 5 mm rounded hypointensity may represent a small loose body, focus of synovitis or the sequela of prior injury. Mild distal quadriceps and distal patellar tendinosis. Suprapatellar fat pad edema, a finding which can be associated with quadriceps impingement. Mild patellar articular cartilage thinning and fissuring. Small joint effusion and small Poe's cyst. She continues to have instability episodes in her knee.Doing PT 3 x per week.Still working. Samantha returns for follow up.Her current restrictions at work at for 4-6 hour shifts but they have her working up to 12 hour shifts.She has had several locking and buckling episodes at work to the point of needing to use a cart to leave work at the end of the day.She uses a brace.She uses Ice.Continues PT.She reported at last visit she has received a call from her workers compensation claims adjuster that her case was determined by them not to be work related. She is having continued medial left knee pain. Has lost 25lbs. Has not had another instability episode yet. Rick Lopez MD [address] [place] [address], [phone], [place] - [facility] 09/12/2018 16:35:27 9 text/html zzJMM KneeReported by PatientHPIFor associated symptoms, patient reportsbuckling,catching/ locking,popping/clicking, grinding, andinstabilitybut reportsno weakness,no numbness,no tingling,no swelling,no redness,no warmth,no ecchymosis,no instability,no radiation down leg,no drainage,no fever, andno chills. For location, patient reportsleft,medial, andlateral. For context, patient reportsacute injury: __. For severity, patient reportsmild. For quality, patient reportsnot changing. For timing, patient reportsworse with activity. For alleviating factors, patient reportsrest/activity restriction,assistive device: crutches, andbrace. For aggravating factors, patient reportstwisting. For previous surgery, patient reportsnone. For prior imaging, patient reportsx rayandmri. For previous injections, patient reportsnone. For previous pt, patient reportshelped temporarilyandhelped significantly.ROS as noted in the HPI Left knee injury. 12 25 17. Her daughter was sledding towards her. She went between her legs, grabbing one leg and twisting her left knee.Crack and popping sensation.Prior right knee surgery 2011 in [place]. She had likely a displaced bucket handle meniscus tear at that time while she was and had surgery after .Seen at [facility]: Xrays there and sunrise here normal.In immobilizer and crutches. MRI left knee: minimal fraying of the medial meniscus--report comments on tear in the medial and lateral mensicus which I think is an overcall.ACL injury--high grade tear--may be some intact fibers. No flipped fragments. Mild sprain LCL and MCL. She was much better. Working with PT.She did not have recurrent instability. Twisting injury 7 3 18. At work. Kneeling, felt pop. Rubbed muscle to relief pain. Kneeled again, knee felt like it shifted.Limping.Seen at [facility] ER.Was on crutches. Has had many trips to hospital recently with headaches related to her neuro condition. Seen in ER 8 8 18. New MRI IMPRESSION: New complex tear of the posterior third of the lateral meniscus with adjacent parameniscal cyst formation. Stress changes of the lateral collateral ligament. ACL sprain injury and partial-thickness tear. Adjacent 5 mm rounded hypointensity may represent a small loose body, focus of synovitis or the sequela of prior injury. Mild distal quadriceps and distal patellar tendinosis. Suprapatellar fat pad edema, a finding which can be associated with quadriceps impingement. Mild patellar articular cartilage thinning and fissuring. Small joint effusion and small Poe's cyst. Samantha returns for follow up.Overall managing. Has lost 25lbs. Has not had another instability episode yet. She is working on weight loss. Rick Lopez MD [address] [place] [address], [phone], [place] - [facility] 12/12/2018 19:04:14 9 text/html zzJMM KneeReported by PatientHPIFor associated symptoms, patient reportsbuckling,catching/ locking,popping/clicking, grinding, andinstabilitybut reportsno weakness,no numbness,no tingling,no swelling,no redness,no warmth,no ecchymosis,no instability,no radiation down leg,no drainage,no fever, andno chills. For location, patient reportsleft,medial, andlateral. For context, patient reportsacute injury: __. For severity, patient reportsmild. For quality, patient reportsnot changing. For timing, patient reportsworse with activity. For alleviating factors, patient reportsrest/activity restriction,assistive device: crutches, andbrace. For aggravating factors, patient reportstwisting. For previous surgery, patient reportsnone. For prior imaging, patient reportsx rayandmri. For previous injections, patient reportsnone. For previous pt, patient reportshelped temporarilyandhelped significantly.ROS as noted in the HPI Left knee injury. 12 25 17. Her daughter was sledding towards her. She went between her legs, grabbing one leg and twisting her left knee.Crack and popping sensation.Prior right knee surgery 2011 in [place]. She had likely a displaced bucket handle meniscus tear at that time while she was and had surgery after .Seen at [facility]: Xrays there and sunrise here normal.In immobilizer and crutches. MRI left knee: minimal fraying of the medial meniscus--report comments on tear in the medial and lateral mensicus which I think is an overcall.ACL injury--high grade tear--may be some intact fibers. No flipped fragments. Mild sprain LCL and MCL. She was much better. Working with PT.She did not have recurrent instability. Twisting injury 7 3 18. At work. Kneeling, felt pop. Rubbed muscle to relief pain. Kneeled again, knee felt like it shifted.Limping.Seen at [facility] ER.Was on crutches. Has had many trips to hospital recently with headaches related to her neuro condition. Seen in ER 8 8 18. New MRI IMPRESSION: New complex tear of the posterior third of the lateral meniscus with adjacent parameniscal cyst formation. Stress changes of the lateral collateral ligament. ACL sprain injury and partial-thickness tear. Adjacent 5 mm rounded hypointensity may represent a small loose body, focus of synovitis or the sequela of prior injury. Mild distal quadriceps and distal patellar tendinosis. Suprapatellar fat pad edema, a finding which can be associated with quadriceps impingement. Mild patellar articular cartilage thinning and fissuring. Small joint effusion and small Poe's cyst. Samantha returns for follow up.Overall managing. Has lost 25lbs. Has not had another instability episode yet. She is working on weight loss. She has been seen at [facility] weight loss center.She has decreased her weight as well. 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 Rick Lopez MD [address] [place] [address], [phone], [place] - [facility] 04/09/2019 12:05:02 9 text/html zzJMM KneeReported by PatientHPIFor associated symptoms, patient reportsbuckling,catching/ locking,popping/clicking, grinding, andinstabilitybut reportsno weakness,no numbness,no tingling,no swelling,no redness,no warmth,no ecchymosis,no instability,no radiation down leg,no drainage,no fever, andno chills. For location, patient reportsleft,medial, andlateral. For context, patient reportsacute injury: __. For severity, patient reportsmildandmoderate. For timing, patient reportsworse with activity. For alleviating factors, patient reportsrest/activity restriction,assistive device: crutches, andbrace. For aggravating factors, patient reportstwisting. For previous surgery, patient reportsnone. For prior imaging, patient reportsx rayandmri. For previous injections, patient reportsnone. For previous pt, patient reportshelped temporarilyandhelped significantly.ROS as noted in the HPI Left knee injury. 12 25 17. Her daughter was sledding towards her. She went between her legs, grabbing one leg and twisting her left knee.Crack and popping sensation.Prior right knee surgery 2011 in [place]. She had likely a displaced bucket handle meniscus tear at that time while she was and had surgery after .Seen at [facility]: Xrays there and sunrise here normal.In immobilizer and crutches. MRI left knee: minimal fraying of the medial meniscus--report comments on tear in the medial and lateral mensicus which I think is an overcall.ACL injury--high grade tear--may be some intact fibers. No flipped fragments. Mild sprain LCL and MCL. She was much better. Working with PT.She did not have recurrent instability. Twisting injury 7 3 18. At work. Kneeling, felt pop. Rubbed muscle to relief pain. Kneeled again, knee felt like it shifted.Limping.Seen at [facility] ER.Was on crutches. Has had many trips to hospital recently with headaches related to her neuro condition. Seen in ER 8 8 18. New MRI IMPRESSION: New complex tear of the posterior third of the lateral meniscus with adjacent parameniscal cyst formation. Stress changes of the lateral collateral ligament. ACL sprain injury and partial-thickness tear. Adjacent 5 mm rounded hypointensity may represent a small loose body, focus of synovitis or the sequela of prior injury. Mild distal quadriceps and distal patellar tendinosis. Suprapatellar fat pad edema, a finding which can be associated with quadriceps impingement. Mild patellar articular cartilage thinning and fissuring. Small joint effusion and small Poe's cyst. Samantha returns for follow up.Overall was managing. Has lost 25lbs. Had not had another instability episode yet. She is working on weight loss. She has been seen at [facility] weight loss center.She has decreased her weight as well. 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 She has discussed having weight loss surgery and has discussed having a BUSINESS EDITOR shunt placed. Was doing workout. More pain in knee 11 19. On crutches and brace. Rick Lopez MD [address] [place] [address], [phone], [place] - [facility] 06/30/2019 11:53:54 0 text/html zzJMM KneeReported by PatientHPIFor associated symptoms, patient reportsecchymosisbut reportsno weakness,no numbness,no tingling,no swelling,no redness,no warmth,no catching/locking,no popping/clicking,no buckling,no grinding,no instability,no radiation down leg,no drainage,no fever, andno chills. For location, patient reportsright,posterior, andmedial. For context, patient reportsacute injury: fall. For severity, patient reportsmoderate. For quality, patient reportsnot changing. For timing, patient reportsworse with activity. For alleviating factors, patient reportsice,rest/activity restriction, andotc medication/nsaids. For aggravating factors, patient reportstwisting,going from sit to stand,stairs, andbending/squatting. For previous surgery, patient reportsnone. For prior imaging, patient reportsx ray. For previous injections, patient reportsnone. For previous pt, patient reportsnone. For working, patient reportsregular duty.ROS as noted in the HPI Right knee injury. 03 02 2020.Stepped on friend's porch. Wood underneath broke and her foot went down into hole. Twisted knee. No Pop in knee at time of injury. Pain since. No Mechanical symptoms. No Giving way. Medial and posterior bruising.Lateral thigh bruising. Rick Lopez MD [address] [place] [address], [phone], [facility] - [facility] 03/04/2020 09:58:23 OBGyn Episode No OBEpisode recorded.
--- OUTSIDE RECORDS SUMMARY | 2025-05-30 20:46 | XMS_ITS | Patient Health Record ---
Author Organization [facility] Address [address] [place] [address] Care Team Providers Care Rn Clinical Appeals Name Role Phone Hermilo RAYO, ALEXI Wade Allergies Allergen (clinical drug ingredient) Drug/Non Drug Allergy documented on EMR Reaction Allergy Type Onset Date Status ciprofloxacin Cipro Unknown Drug Allergy Act john Reason For Referral No Information Medications Medication SIG (Take, Route, Frequency, Duration) Notes Start Date End Date Status Aimovig SureClick Autoinjector 70 mg/mL as directed subcutaneously once a month 02/19/2019 Active SUMAtriptan 4 mg/0.5 mL as directed subc utaneously once 02/19/2019 Active topiramate 100 mg 1 tab(s) orally 2 ti mes a day; Duration: 30 day(s) 02/19/2019 Active Social History Tobacco Use: Social History Observation Description Date Details (start date - stop date) Never Smoker NA - NA Tobacco: Question Answer Notes Status: never smoked Problems Problem Type SNOMED Code ICD Code Onset Dates Problem Status W/U Status Risk Notes Problem Preoperative cardiovascular examination (853839954) Preoperative cardiovascular examination (Z01.810) Active confirmed Problem Atypical chest pain (568040222) Atypical chest pain (R07.89) Active confirmed Plan Of Treatment No Information Insurance Providers Payer Name Payer Address Payer Phone Subscriber Number Group Number Insured Name Patient Relationship to Insured Coverage Start Date Coverage End Date [facility] ([facility] [address] [place] [phone] [id number] JAMES BONILLA Self - patient is the insured 8 Medical (General) History Medical History History ICD Code Morbid obesity Migraines Pseudotumor cerebri BRYAN, wears CPAP Surgical History Surgery Date(Month/Year) x 2 Knee surgery
--- OUTSIDE RECORDS SUMMARY | 2025-05-30 20:46 | XMS_ITS | Clinical Summary ---
Author Organization [facility] Address [address] [place] [address] Phone Support Name Relationship Address Phone Axel England Domestic partner [address] [facility] [address] [place] [address] Care Team Providers Care Still Operator Helper Name Role Phone Suze Shahid MD Primary Care Provider [phone] Allergies Active Allergy Reactions Criticality Noted Date [...] DAY 180 tablet 3 12/10/19 25 Active pyridoxine (B-6) 100 mg tabletIndications [...] 1 each 12 04/10/20 25 026 Active salicylic acid 17 % gel Apply topically 1 (one) time each day. 15 g 05/09/20 25 025 Active multivitamin tablet Take 1 tablet by mouth 1 (one) time each day. Active ursodioL (ACTIGALL) 300 mg capsule TAKE 2 CAPSULES BY MOUTH EVERY DAY 180 capsule 1 12/11/19 25 025 Discontinu ed(Discont inued by another clinician) Active Problems Problem Noted Date Diagnosed Date Syncope 05/12/2025 Assessment & Plan (05/12/2025 1:56 PM EDT): Patient has some symptoms that may be consistent with orthostasis. We have scheduled her for tilt table test and a 14-day monitor. Will see if she is having any bradycardia arrhythmias. Occasionally gastric sleeve surgeries can cause some autonomic problems especially with bradycardia. Though her symptoms seem to be more just consistent with orthostatic changes. Orders: ECG 12 lead Cardiac event monitor; Future Tilt table; Future Heart palpitations 05/12/2025 Cysts of both ovaries 10/24/2024 Overview (10/24/2024): [...] Encounters Date Type Department Care Team Description 05/29/2025 Telephone [facility] Cardiology [facility] [address] [place] [address] Shahid Juárez MD 05/13/2025 Telephone [facility] [address] [place] [address] Shahid Juráez MD 05/12/2025 1:20 PM EDT Office Visit [facility] [address] [place] [address] Shahid Juárez MD Syncope, unspecified syncope type (Primary Dx) 05/09/2025 9:15 AM EDT Consult Orthopedic Surgery - [place] [address] [facility] [address] [place] [phone] Torsten Pressley, DPM Verruca plantaris (Primary Dx); Foot callus 05/07/2025 11:00 AM EDT Office Visit Bariatric Surgery [facility] [address] [phone] Nicole Lagunas PA Overweight (BMI 25.0-29.9) (Primary Dx); Pseudotumor cerebri; Bariatric surgery status; Dizziness 04/18/2025 9:15 AM EDT Ancillary Procedure Pulmonology - [place] 175 [facility] [address] [place] [phone] Moderate persistent asthma, unspecified whether complicated 04/17/2025 11:30 AM EDT Office Visit Internal Medicine [facility] 175 [facility] [address] [place] [phone] Baldo Hollis MD Syncope, unspecified syncope type (Primary Dx); Pseudotumor cerebri; Bariatric surgery status; Foot callus 04/11/2025 10:15 AM EDT Office Visit Bariatric Surgery [facility] 175 [facility] [address] [place] [address] Nicole Lagunas PA Overweight (BMI 25.0-29.9) (Primary Dx); Pseudotumor cerebri 04/10/2025 10:00 AM EDT Consult Pulmonology - [place] 175 [facility] [address] [place] [address] Vahid Vuong MD Moderate persistent asthma, unspecified whether complicated from Last 3 Months Immunizations Immunization Administration Dates Next Due Influenza Quadravalent, MDCK [...] 2011 PROCEDURE: HISTORICAL TUBAL LIGATION KNEE SURGERY 2011 Right PROCEDURE: HISTORICAL KNEE SURGERY; COMMENT: arthroscopy for dislocated patella w/ meniscus injury SECTION PROCEDURE: HISTORICAL DELIVERY; COMMENT: 2 x OTHER SURGICAL HISTORY PROCEDURE: LUMBAR PUNCTURE LAB ORDERS; COMMENT: 5 x SLEEVE GASTROPLASTY 06/14/2024 Medical History Medical History Date Comments PCOS (polycystic ovarian syndrome) 03/15/2021 DX:PCOS (polycystic ovarian syndrome) Asthma 03/15/2021 DX:Asthma Migraine 03/15/2021 DX:Migraine Morbid obesity with BMI of 4 0.0-44.9, adult ([facility] V24, [facility] V28) 03/15/2021 DX:Morbid obesity wit h BMI of 40.0-44.9, adult ([facility]) Benign intracranial hypertension DX:Benign intracranial hypertension Pseudotumor cerebri Bypass graft mechanical comp lication ([facility] V24) Class 1 obesity due to exces [...] Passive Smoke Exposure: Past Smokeless Tobacco: Never Tobacco Cessation:Counseling Given: Not Answered Alcohol Use Standard Drinks/Week Comments Yes 0 [...] for your loved ones. For example, child care associate or elderly care for an older adult? [...] Sign Reading Time Taken Comments Blood Pressure 110/70 05/12/2025 1:54 PM EDT Pulse 63 05/12/2025 1:19 PM EDT Temperature 36.6 C (97.8 F) 04/11/2025 10:13 AM EDT Respiratory Rate 16 04/10/2025 9:58 AM EDT Oxygen Saturation 99% 05/12/2025 1:19 PM EDT Inhaled Oxygen Concentration - - Weight 75.8 kg (167 lb) 05/12/2025 1:19 PM EDT Height 165.1 cm (5' 5 ) 05/12/2025 1:19 PM EDT Body Mass Index 27.79 05/12/2025 1:19 PM EDT Plan of Treatment Upcoming Encounters Date Type Department Care Team (Late st Contact Info) Description 06/10/2025 9:15 AM EDT Office Visit Orthopedic Surgery - [place] [address] [address] Torsten Pressley, DPM [address] [phone] 06/10/2025 11:00 AM EDT Office Visit Bariatric Surgery - [place] [address] [place] [address] Paola Guzman MD [address] [place] [phone] 06/24/2025 10:15 AM EST Office Visit Pulmonology - [place] [address] [place] [phone] Vahid Vuong MD [address] [facility] [address] [place] [address] 08/01/2025 7:40 AM EST Office Visit [facility] [address] [place] [phone] Teresa Byers NP [address] [place] [address] [place] [phone] Health Maintenance Due Date Last Done Comments Hepatitis B Vaccines (1 of 3 - 19+ 3-dose series) 2011 HPV Vaccines (1 - 3-dose SCDM series) 2019 Pneumococcal Vaccine: Pediatrics (0 to 5 Years) and At-Risk Patients (6 to 49 Years) (2 of 2 - PCV) 04/18/2020 04/18/2019 COVID-19 Vaccine (3 - season) 2025 11/16/2020, 10/19/2020 Influenza Vaccine (#1) 2025 2, 04/05/2020, 05/18/2018, Additional history exists Social Influencers of Health Screening 02/12/2026 02/12/2025 DTaP,Tdap,and Td Vaccines (2 - Td or Tdap) 05/18/2028 05/18/2018 Cholesterol Screening (Lipid Panel) 11/26/2028 11/27/2023 Cervical Cancer Screening: HPV 10/10/2029 10/10/2024 RSV Immunization Adult Patients (1 - 1-dose 75+ series) 2067 HIV Screening Completed 10/10/2024, 07/01/2024 Hepatitis C [...] Procedure Name Priority Date/Time Associated Diagnosis Comments ECG 12-LEAD Routine 05/12/2025 1:26 PM EDT Syncope, unspecified syncope type PULMONARY FUNCTION TESTING Routine 04/18/2025 9:18 AM [...] Dizziness AVINA URINE CULTURE TUBE Routine 03/20/20 3:54 PM EDT Dysuria URINALYSIS WITH REFLEX MICROSCOPIC AND CULTURE Routine 03/20/2025 3:54 PM EDT Dysuria URINALYSIS WITH REFLEX MICROSCOPIC AND CULTURE Routine 03/20/2025 3:54 PM EDT Dysuria HEPATITIS C ANTIBODY Routine 10/10/2024 11:52 AM [...] Recently Relevant to Health Maintenance Results * ECG 12 lead (05/12/2025 1:26 PM EDT) Ventricular Rate ECG 57 BPM GEMUSE Atrial Rate 57 BPM GEMUSE P-R Interval 158 ms GEMUSE QRS Duration 88 ms GEMUSE Q-T Interval 422 ms GEMUSE QTc 410 ms GEMUSE P Wave [place] 23 degrees GEMUSE R [place] 79 degrees GEMUSE T [place] 38 degrees GEMUSE ECG Interpretation Sinus bradycardia Otherwise normal ECG When compared with ECG of 14-DEC-2024 05:00, No significant change was found Confirmed by Long JUÁREZ JAMES ([id number]) on 05/12/2025 7:43:29 PM GEMUSE 05/12/2025 1:26 PM EDT 05/12/2025 7:43 PM EDT Shahid Juárez MD ECG ORDERABLES Final Result GEMYAHAIRA * Pulmonary function testing: Spirometry with Bronchodilator, Carbon Monoxide Diffusing Capacity, Vital Capacity Test, Nitrogen Wash Out (04/18/2025 9:18 AM EDT) Impressions Vahid Vuong MD - 04/18/2025 9:18 AM EDT DATE OF SERVICE: 04/18/25 SPIROMETRY: FEV1 is 128 % predicted and an FVC is 110 % predicted. The FEV1/FVC ratio is 115% of normal, no response to bronchodilators noted. LUNG VOLUMES: Total lung capacity (TLC): 120% predicted. Residual volume (RV): 168% predicted RV/TLC ratio is 137% of normal DIFFUSION CAPACITY: DLCO 103% predicted. INTERPRETATION: This pulmonary function test shows normal spirometry and diffusion. There is no evidence of lung disease based on this PFT MD Vahid Levine MD Vahid Vuong MD PFT ORDERABLES Edited Result - Final * Iron and TIBC (04/04/2025 12:10 PM EDT) Iron 89 40 - 150 mcg/dL LAB CHEMISTRY METHOD 04/04/2025 3:02 PM EDT [facility] TIBC 266 250 - 450 mcg/dL LAB CHEMISTRY METHOD 04/04/2025 3:02 PM EDT [facility] Iron Saturation 33 15 - 50 % LAB CHEMISTRY METHOD 04/04/2025 3:02 PM EDT [facility] Blood Venous blood specimen / Unknown Venipuncture / Unknown 04/04/2025 12:10 PM EDT 04/04/2025 12:11 PM EDT Nicole GAMBOA LAB BLOOD ORDERABLES Final R esult [facility] [address] [place] [address], [place] [phone] * Zinc (04/04/2025 12:10 PM EDT) Zinc 64 60 - 130 ug/dL 04/07/2025 12:47 PM EDT [facility] Comment: Elevated results may be due to sample collected in a non-certified trace element-free tube. This test was developed and the performance characteristics determined by [facility]. It has not been cleared or approved by the FDA. The laboratory is regulated under CLIA as qualified to perform high-complexity testing. This test is used for patient testing purposes. It should not be regarded as investigational or for research. Test performed at [facility], [address], [place] [address] Linda Palmer MD, PhD - National Sales Trainer Blood Venous blood specimen / Unknown Venipuncture / Unknown 04/04/2025 12:10 PM EDT 04/04/2025 12:11 PM EDT Nicole GAMBOA LAB BLOOD ORDERABLES Final R esult [facility] [address] [place] [address] * Selenium serum (04/04/2025 12:10 PM EDT) Selenium 107 63 - 160 mcg/L 04/08/2025 5:00 PM EDT [facility] Comment: Testing was performed on a specimen submitted in a tube which has not been certified to be free of trace elements. Repeat testing on a specimen collected in a trace element tube is recommended prior to initiation of remedial action or environmental investigation of potential heavy metal sources. Refer to the [employer] for proper specimen collection information. This test was developed and its analytical performance characteristics have been determined by [facility] [place]. It has not been cleared or approved by the U.S. Food and Drug Administration. This assay has been validated pursuant to the CLIA regulations and is used for clinical purposes. Test Performed by [facility], [facility], [address] [place] [address] Darinel Chávez M.D., Ph.D., Director of Laboratories , CLIA [id number] Blood Venous blood specimen / Unknown Venipuncture / Unknown 04/04/2025 12:10 PM EDT 04/04/2025 12:11 PM EDT Nicole GAMBOA LAB BLOOD ORDERABLES Final R esult [facility] [address] [place] [address] * Vitamin D 25 hydroxy (04/04/2025 12:10 PM EDT) Pathologist [facility] Vit D, 25-Hydroxy 42.3 30.0 - 80.0 ng/mL LAB CHEMISTRY METHOD 04/04/2025 4:04 PM EDT [facility] Blood Venous blood specimen / Unknown Venipuncture / Unknown 04/04/2025 12:10 PM EDT 04/04/2025 12:11 PM EDT Nicole GAMBOA LAB BLOOD ORDERABLES Final R esult [facility] [address] [place] [address], * Vitamin B1 (04/04/2025 12:10 PM EDT) [facility] Vitamin B1 Whole Blood 78 38 - 122 ug/L 04/09/2025 8:12 AM EDT [facility] Comment: This test was developed and the performance characteristics determined by [facility]. It has not been cleared or approved by the FDA. The laboratory is regulated under CLIA as qualified to perform high-complexity testing. This test is used for patient testing purposes. It should not be regarded as investigational or for research. Test performed at [facility], [address] [place] [address] Linda Palmer MD, PhD - National Sales Trainer Blood Venous blood specimen / Unknown Venipuncture / Unknown 04/04/2025 12:10 PM EDT 04/04/2025 12:11 PM EDT Nicole GAMBOA LAB BLOOD ORDERABLES Final R esult Performing Organization Address City/[facility]/ZIP Co de Phone Number [facility] [address] [place] [address] * Vitamin B6 (04/04/2025 12:10 PM EDT) Pathologist [facility] Vitamin B6 (Pyridoxine) Level 27 5 - 50 ug/L 04/08/2025 12:50 PM EDT [facility] Comment: This test was developed and the performance characteristics determined by [facility]. It has not been cleared or approved by the FDA. The laboratory is regulated under CLIA as qualified to perform high-complexity testing. This test is used for patient testing purposes. It should not be regarded as investigational or for research. Test performed at [facility], [address] [place] [address] Linda Palmer MD, PhD - National Sales Trainer Blood Venous blood specimen / Unknown Venipuncture / Unknown 04/04/2025 12:10 PM EDT 04/04/2025 12:11 PM EDT Nicole GAMBOA LAB BLOOD ORDERABLES Final R esult Performing Organization Address City/[facility]/ZIP Co de Phone Number [facility] [address] [place] [address] * Folate (04/04/2025 12:10 PM EDT) Pathologist [facility] Folate 8.5 2.8 - 17.0 ng/ml LAB CHEMISTRY METHOD 04/04/2025 3:24 PM EDT [facility] Blood Venous blood specimen / Unknown Venipuncture / Unknown 04/04/2025 12:10 PM EDT 04/04/2025 12:11 PM EDT Nicole GAMBOA LAB BLOOD ORDERABLES Final R esult [facility] [address] [place] [address], [place] [phone] * Vitamin B12 (04/04/2025 12:10 PM EDT) [facility] Vitamin B-12 539 250 - 900 pcg/mL LAB CHEMISTRY METHOD 04/04/2025 3:24 PM EDT [facility] Blood Venous blood specimen / Unknown Venipuncture / Unknown 04/04/2025 12:10 PM EDT 04/04/2025 12:11 PM EDT Nicole GAMBOA LAB BLOOD ORDERABLES Final R esult [facility] [address] [place] [address], [place] [phone] * Comprehensive metabolic panel (04/04/2025 12:10 PM EDT) [facility] Sodium 142 133 - 145 mmol/L LAB CHEMISTRY METHOD 04/04/2025 3:24 PM EDT [facility] Potassium 3.8 3.5 - 5.5 mmol/L LAB CHEMISTRY METHOD 04/04/2025 3:24 PM EDT [facility] Chloride 110 96 - 110 mmol/L LAB CHEMISTRY METHOD 04/04/2025 3:24 PM EDT [facility] CO2 29 21 - 32 mmol/L LAB CHEMISTRY METHOD 04/04/2025 3:24 PM [facility] Anion Gap 3 3 - 11 LAB CHEMISTRY METHOD 04/04/2025 3:24 PM [facility] Glucose 82 70 - 100 mg/dL LAB CHEMISTRY METHOD 04/04/2025 3:24 PM [facility] BUN 13 5 - 25 mg/dL LAB CHEMISTRY METHOD 04/04/2025 3:24 PM [facility] Creatinine 0.74 0.50 - 1.10 mg/dL LAB CHEMISTRY METHOD 04/04/2025 3:24 PM [facility] eGFR 110 >=60 mL/min/1. 73m2 LAB CHEMISTRY METHOD 04/04/2025 3:24 PM [facility] Comment:Calculation based on the Chronic Kidney Disease Epidemiology Collaboration (CKD-EPI) equation refit without adjustment for race. BUN/Creatinine Ratio 17.6 LAB CHEMISTRY METHOD 04/04/2025 3:24 PM [facility] Calcium 9.0 8.5 - 10.5 mg/dL LAB CHEMISTRY METHOD 04/04/2025 3:24 PM [facility] AST (SGOT) 16 10 - 42 unit/L LAB CHEMISTRY METHOD 04/04/2025 3:24 PM [facility] ALT (SGPT) 24 10 - 60 unit/L LAB CHEMISTRY METHOD 04/04/2025 3:24 PM [facility] Alkaline Phosphatase 60 42 - 121 unit/L LAB CHEMISTRY METHOD 04/04/2025 3:24 PM [facility] Total Protein 6.5 6.0 - 8.0 g/dL LAB CHEMISTRY METHOD 04/04/2025 3:24 PM [facility] Albumin 3.6 3.2 - 5.0 g/dL LAB CHEMISTRY METHOD 04/04/2025 3:24 PM [facility] Total Bilirubin 0.6 0.0 - 1.4 mg/dL LAB CHEMISTRY METHOD 04/04/2025 3:24 PM EDT [facility] Blood Venous blood specimen / Unknown Venipuncture / Unknown 04/04/2025 12:10 PM EDT 04/04/2025 12:11 PM EDT us Nicole GAMBOA LAB BLOOD ORDERABLES Final R esult [facility] [address] [place] [address], [place] [phone] * Urinalysis with reflex microscopic and culture (03/20/2025 3:54 PM EDT) Specific Moore Urine 1.017 1.003 - 1.030 LAB URINALYSIS - AUTOMATED METHOD 03/20/2025 6:50 PM EDT [facility] pH, Urine 7.0 5.0 - 8.0 pH LAB URINALYSIS - AUTOMATED METHOD [facility]/20[facility]25 [facility] Leukocytes, Urine Negative Negative LAB URINALYSIS - AUTOMATED METHOD 03/20/2025 6:50 PM [facility] Nitrite, Urine Negative Negative LAB URINALYSIS - AUTOMATED METHOD 03/20/2025 6:50 PM [facility] Protein, Urine Negative <=Trace mg/dL LAB URINALYSIS - AUTOMATED METHOD 03/20/2025 6:50 PM EDT [facility] Glucose, Urine Negative Negative mg/dL LAB URINALYSIS - AUTOMATED METHOD 03/20[facility]20[facility] Ketones, Urine Negative Negative mg/dL LAB URINALYSIS - AUTOMATED METHOD 03/20/2025 6:50 PM [facility] Urobilinogen, Urine 1.0 0.2 - 1.0 mg/dL LAB URINALYSIS - AUTOMATED METHOD 03/20/2025 6:50 PM [facility] Bilirubin, Urine Negative Negative LAB URINALYSIS - AUTOMATED METHOD 03/20/2025 6:50 PM EDT [facility] Blood, Urine Negative Negative LAB URINALYSIS - AUTOMATED METHOD 03/20/2025 6:50 PM EDT [facility] Urine Urine specimen obtained by clean catch procedure / Unknown Non-blood Collection / Unknown 03/20/2025 3:54 PM EDT 03/20/2025 3:54 PM EDT us Nicole GAMBOA LAB URINE ORDERABLES Final R esult Performing Organization Address City/[facility]/ZIP Co de Phone Number [facility] [address] [place] [address], [place] [phone] * Avina urine culture tube (03/20/2025 3:54 PM EDT) Extra Tube Hold for add-ons. 03/20/2025 7:01 PM EDT [facility] Comment:Auto resulted. Urine Urine specimen obtained by clean catch procedure / Unknown Non-blood Collection / Unknown 03/20/2025 3:54 PM EDT 03/20/2025 3:54 PM EDT us Nicole GAMBOA LAB URINE ORDERABLES Final R esult [facility] [address] [place] [address], [place] [phone] * Hepatitis C antibody (10/10/2024 11:52 AM EST) Hepatitis C Antibody Negative Negative LAB CHEMISTRY METHOD 10/10/2024 4:47 PM EST [facility] Blood Venous blood specimen / Unknown Venipuncture / Unknown 10/10/2024 11:52 AM EST 10/10/2024 11:52 AM EST us Betsey Collazo [facility] BLOOD ORDERABLES Final Res ult Performing Organization Address [facility]/ZIP Co de Phone Number [facility] [address] [place] [address], [place] [phone] * HIV 1,2 antibody, p24 antigen with reflex to differentiation (10/10/2024 11:52 AM EST) HIV Combo AB/AG Negative Negative LAB CHEMISTRY METHOD 10/10/2024 4:48 PM EST [facility] Blood Venous blood specimen / Unknown Venipuncture / Unknown 10/10/2024 11:52 AM EST 10/10/2024 11:52 AM EST Narrative [facility] - 10/10/2024 4:48 PM EST This assay is a 4th generation assay allowing for earlier detection of HIV infection by detecting the presence of the HIV-1 p24 antigen as well as the traditional antibodies to HIV type 1 (including group O) and type 2. Use of a 4th generation assay is the current CDC recommendation for HIV screening. us Betsey Coxes [facility] BLOOD ORDERABLES Final Res ult Performing Organization Address [facility]/ZIP Co de Phone Number [facility] [address] [place] [address], [place] [phone] * HPV with reflex genotype (10/10/2024 10:54 AM EST) HPV Negative Negative LAB MICROBIOLOGY METHOD 10/11/2024 2:02 PM EST [facility] Brushing/Spatula Cervix uteri structure / Unknown 10/10/2024 10:54 AM EST 10/11/2024 7:57 AM EST Betsey Collazo [facility] MOLECULAR DIAGNOSTICS ORDE RABLES Final Result Performing Organization Address City/[facility]/ZIP Co de Phone Number [facility] [address] [place] [address], [place] [phone] * (ABNORMAL) Lipid panel (11/27/2023) LDL/HDL Ratio 4 0 - 4 Triglycerides 163(A) 0 - 150 mg/dL Cholesterol 122 0 - 200 mg/dL HDL 35(A) >=40 mg/dL LDL Cholesterol 55 0 - 100 mg/dL Blood Venous blood specimen / Unknown us Historical Provider LAB BLOOD ORDERABLES Elizabeth l Result from Last 3 Months or Most Recently Relevant to Health Maintenance Insurance Care Teams Still Operator Helper Relationship Specialty Start Date End Date Suze Shahid MD 175 [facility] [address] [place] [id number] PCP - General Internal Medicine 06/03/21
--- OUTSIDE RECORDS SUMMARY | 2025-05-30 20:46 | XMS_ITS | Encounter Summary ---
Author Organization [employer] Address [address] [place] [address] Support Name Relationship Address Phone Axel England Domestic partner [address] [place] [address] Care Team Providers Care Dialysis Patient Care Technician Name Role Phone Suze Shahid MD Primary Care Provider [phone] Reason for Visit * Reason Onset Date Comments Appointment 05/29/2025 Tilt Table Encounter Details Date Type Department Care Team ([facility] st Contact Info) Description 05/29/2025 Telephone [facility] [address] [place] [phone] Shahid Martínez MD [address] [place] [address] [address] [place] [address] Social History Tobacco Use Types Packs/Day Years [...] for your loved ones. For example, child protection specialist or elderly care for an older adult? [...] 12/14/2024 8:00 AM Phoebe Arce, BRAYDEN * Are you blind or do [...] documented in this encounter Progress Notes * Andreia Jones - 05/29/2025 2:19 PM EDT Order and demos have been faxed to [facility] to schedule pt for a Tilt Table. They will contact the patient to schedule this appointment. Letter mailed documented in this encounter Plan of Treatment Upcoming Encounters Date Type Department Care Team (Late st Contact Info) Description 06/10/2025 9:15 AM EDT Office Visit Orthopedic Surgery - [place] 250 175 [facility] [address] [place] [phone] Torsten Pressley DPM 175 [facility] [address] [place] [phone] 06/10/2025 11:00 AM EDT Office Visit Bariatric Surgery - [place] 175 [facility] [address] [place] [phone] Paola Guzman MD [address] [place] [phone] 06/24/2025 10:15 AM EST Office Visit Pulmonology - [place] 175 [facility] [address] [place] [phone] Vahid Vuong MD 175 [facility] [address] [place] [address] 08/01/2025 7:40 AM EST Office Visit [facility] - [facility] [address] [place] [phone] Teresa Byers, RACHEL [address] [place] [address] Dr [address] [place] [address] documented as of this encounter Visit Diagnoses Not on filedocumented in this encounter Additional Health Concerns Assessment Noted Time PHQ-9 Depression Total Score: 2 12/26/19 25 9:18 AM EDT documented as of this encounter Care Teams Dialysis Patient Care Technician Relationship Specialty Start Date End Date Suze Shahid MD 175 [facility] [address] [place] [phone] PCP - General Internal Medicine 06/03/21 documented as of this encounter
== END ==
LOC: HO.SL 20:30
PROVIDERS: PCP Internal Medicine; Visit Provider Physician Assistant Medical
DX: G47.33 Obstructive sleep apnea (adult) (pediatric) (principal); G47.19 Other hypersomnia
CPT/HCPCS: 95810

== ENCOUNTER → 2025-05-30 20:34 | Outpatient (BNV) | payer OTHER, SELFPAY | PROVIDERS: PCP Internal Medicine; Visit Provider Psychiatry & Neurology Neurology | DX: R06.83 Snoring (principal) | CPT/HCPCS: 95810 ==

== ENCOUNTER 2025-06-05 08:55 | Outpatient (AMB) | payer OTHER, SELFPAY ==
--- OUTSIDE RECORDS SUMMARY | 2025-06-02 10:00 | XMS_ITS | Encounter Summary ---
Author Organization [employer] Address [address] [place] [address] Support Name Relationship Address Phone Axel England Domestic partner [address] [facility] [address] [place] [address] Care Team Providers Care Strip Mill Operator Name Role Phone Suze Shahid MD Primary Care Provider [phone] Reason for Visit * Reason Comments 14 day ROCT * Cardiac Stress Testing (Routine) - Authorized Specialty Diagnoses / Procedures Referred By Pau almanzar Referred To Contact Cardiology Diagnoses Syncope, unspecified syncope type Procedures Cardiac event monitor OR EXTERNAL PATIENT ACTIVATED ECG DOWNLOAD W RESULTS & INTERP <= 30 DAYS OR EXTERNAL PAT AUTO ACTIVATED ECG INCLUDING TRANSMISSION UP TO 30 DAYS OR EXTERNAL MOBILE CV TELEMETRY W ECG RECORDING <=30D PHYSCIAN REV & INTERP OR EXTERNAL MOBILE CV TELEMETRY W ECG RECORDING TECH SUPPORT UP TO 30 DAYS OR ECG UP TO 30 DAYS RECORDING Shahid Martínez MD [address] [place] [address] [place] [address] Phone: tel: fax: Referral ID Status Reason Start Date Expiration Date V isits Requested Visits Authorized [id number] Authorized 05/16/2025 08/16/2025 1 1 Encounter Details Date Type Department Care Team (Latest Contact Info) Description 06/02/2025 10:00 AM EDT Ancillary Procedure [facility] - [address] [facility] [address] [place] [phone] Syncope, unspecified syncope type Social History Tobacco Use Types Packs/Day Years [...] care for your loved ones. For example, early childhood specialist or elderly care for an older [...] 12/14/2024 8:00 AM Phoebe Arce RN * Are you blind or do [...] Phoebe Arce RN documented in this encounter Plan of Treatment Upcoming Encounters Date Type Department Care Team (Late st Contact Info) Description 06/10/2025 9:15 AM EDT Office Visit Orthopedic Surgery [facility] [address] [phone] Torsten Pressley DPM [address] [phone] 06/10/2025 11:00 AM EDT Office Visit Bariatric Surgery [facility] [address] [phone] Paola Guzman MD [address] [place] [phone] 06/24/2025 10:15 AM EST Office Visit Pulmonology - [place] [address] [place] [phone] Vahid Vuong MD [address] [place] [address] 08/01/2025 7:40 AM EST Office Visit [facility] - [facility] [address] [facility] [address] [place] [phone] Teresa Byers NP [address] [place] [address] [address] [place] [phone] Pending Results Name Type Priority Associated Diagnoses Date /Time Cardiac event monitor Cardiac Services Routine Syncope, unspecified syncope type 06/03/2025 1:53 PM EDT documented as of this encounter Visit Diagnoses Diagnosis Syncope, unspecified syncope type documented in this encounter Additional Health Concerns Assessment Noted Time PHQ-9 Depression Total Score: 2 12/26/19 25 9:18 AM EDT documented as of this encounter Care Teams Strip Mill Operator Relationship Specialty Start Date End Date Suze Shahid MD [address] [place] [phone] PCP - General Internal Medicine 06/03/21 documented as of this encounter
[2025-06-05 09:01] VITALS: BP 110/64; PULSE 66; O2SAT 98; BMI 27.0
--- NOTE | 2025-06-05 09:01 | MHC.OFFVIS ---
Vital Signs 06/05/25 09:01 Height 5 ft 5 in Weight 162 lb BMI 27.0 BP 110/64 Blood Pressure Location Rt brachial Position Sitting Pulse 66 Pulse Source Pulse Oximeter Pulse Oximetry (%) 98 Oxygen Delivery Method Room Air Intake Visit Reasons: follow up Intake Note: Follow up Excessive daytime sleepiness, pseudotumor cerebri, Migraine and GILA Pile Driver Required: No Accompanied by: Self / Same As Patient Allergies ciprofloxacin (From Cipro) Allergy (Intermediate, Verified 06/05/25 09:05) itchy Medication List - Last Reconciled 06/05/25 by Fadia Mayfield MD albuterol sulfate 90 mcg/actuation (Ventolin HFA) 2 puffs inhalation Q4H PRN erenumab-aooe (Aimovig Autoinjector) 140 mg subcut ONCE 30 days famotidine 40 mg PO BID fluticasone propion-salmeterol 250-50 mcg/dose (Advair Diskus) 1 ea inhalation BID fluticasone propionate 110 mcg/actuation inhalation ibuprofen 400 mg PO Q8H ondansetron 4 mg PO Q8H PRN pyridoxine (vitamin B6) 100 mg PO DAILY rizatriptan take 1 tablet at onset of headache; if no relief, may repeat 1 tablet after at least 2 hrs PO MDD 10mg simethicone 80 mg PO Q6H PRN ubrogepant (Ubrelvy) 50 mg PO ONCE ursodiol 600 mg PO DAILY HPI Comments Details: 34 y/o female with migraines, and Pseudo-tumor Cerebri comes for follow up.she had sleep study last week - reports not available . she lost 100 lbs since her gastric sleeve surgery last year Migraines - she stopped topiramate as it was making her dizzy. she has 1-2 days of migraines a week. Ubrelvy helps sometimes needs a second dose. Headaches are throbbing unilateral pain in left parietal, eye region , with nausea, photophobia, phonophobia , visual aura. PMH: Jun [address] Omar Obando referred her for fainting spells since November 2024, increased salt and slow positional changes. Dizziness, and migraines now worse. She was given abx at the urgent care on February 09 for a UTI and started to vomit then presented to [facility], she was admitted and treated for Pyelonephritis, dehydration and emesis. She was malnourished, with low k due to vomiting. Today she c/o dizziness all the time with standing, sitting, and bending down. She had one episode of syncope 2 weeks ago then felt better after this episode. She had an episode of being frozen as she bent over and tried to stand up with hands in the air. she felt trapped in her body for 5min, then she screamed out to her boyfriend and he caught her before she fell. Her migraines were managed with Aimovig in the past and now she has an increased episode of migraines 10/10 in severity daily with dizziness and losing conscious for a few minutes. When she wakes up she feels better dizziness and headaches improve. Her diet has changed since her surgery as she has lost 100lbs. She has nausea, photophobia, phonophobia, tinnitus, eye pain l>r, visual auras with black spots and blurry vision bilaterally. She takes tylenolol or distracts herself and uses heating pad and showers which helps. She was on ubrelvy and this improved her headaches/ migraines, however since her insurance changed she is unable to get this medication. Her [facility] doctor told her not to take ubrelvy or topiramate, but these treatments were effective in the past. Now she is having >15/ episodes of migraines lasting for hours with nause and vomiting each month. She sees her opthamologist once a year for Pseudo-Tumor Cerebri last eval was in Sep 2023 no optic nerve swelling. She is also seeing a neuro in [place], [place]. for bilateral CTS. GILA, Sleep study was normal in 2021, now she has lost over 100lbs and has GI sensitivity. Labs are reviewed with patient. Her past migraine/headache medications trialed were: -Topiramate which was effective in reducing severity from 10/10 to 7/10. The frequency of her headaches is daily. -BB Propanolol is C/I due to asthma. -Ajovy prito to Aimovig was effective in decreasing the frequency and severity of headaches. Her headaches were 1-2/week and severity was 4-5/ out of ten. -Sumatriptan Injections s/e of blacking out due to sensitivity. [facility] Medical History Carpal tunnel syndrome of right wrist Chronic migraine with aura Obstructive sleep apnea Obesity Asthma PCOS (polycystic ovarian syndrome) Surgical History H/O gastric sleeve Previous section H/O knee surgery Family History Father HTN (hypertension) Migraines Family history of GERD Mother HTN (hypertension) Thyroid disease Cancer Family/Other Asthma Allergy Paternal Grandfather Allergy Asthma Cancer Maternal Grandfather HTN (hypertension) Thyroid disease Social History Alcohol intake: never Patient Tobacco Use Status: Never used Tobacco Substance Use Type: Marijuana 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, 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 Physical Exam Vital Signs: Last Vital Signs Pulse 66 06/05/25 09:01 BP 110/64 06/05/25 09:01 Pulse Ox 98 06/05/25 09:01 Oxygen Delivery Method Room Air 06/05/25 09:01 BMI result Body Mass Index 27.0 Const General: cooperative and no acute distress Nutritional Appearance: obese Orientation/consciousness: patient oriented x3 Eyes Pupils: Equal, round and reactive pupils present Neuro General: patient oriented x3, gait normal, moves all extremities, no focal motor deficits and CN's II-XI intact bilaterally Cranial nerves: Yes CN's II-XII intact bilaterally, Yes Equal, round and reactive pupils present and Yes Normal facial strength present Cognition (Neuro): normal cognition Motor exam (neuro): Abnormal motor strength present and Abnormal muscle tone present Psych Appearance: grossly normal Mental Status: mental status grossly normal Speech and movement: Normal speech and movement present Thought process: Normal thought process present Thought content: Normal thought content present Assessment & Plan Assessment & Plan (1) Excessive daytime sleepiness: Code(s): G47.19 - Other hypersomnia Category: Medical (2) Pseudotumor cerebri: Code(s): G93.2 - Benign intracranial hypertension Category: Medical (3) Episodic migraine: Code(s): G43.909 - Migraine, unspecified, not intractable, without status migrainosus Category: Medical Plan Excessive daytime fatigue r/o gila with psg.- last week -she lsot 100lbs since her last sleep study 5 years ago Continue ubrelvy and aimovig per insurance and PA Ophthalmology- Jun 14 Medications: New magnesium aspart,citrate,oxide 400 mg PO .qhs 90 caps 6RF riboflavin (vitamin B2) 400 mg PO QAM 30 tabs 5RF Discontinued topiramate Discontinued Reason: Patient no longer taking 25 mg PO BID 60 tabs 6RF Coding Level of Care Code Est Pt Level 4 (98334) Complex EM visit Add On G2211 Diagnoses Excessive daytime sleepiness G47.19 Pseudotumor cerebri G93.2 Episodic migraine G43.909
--- OUTSIDE RECORDS SUMMARY | 2025-06-05 09:41 | XMS_ITS | Clinical Summary ---
Author Organization [facility] Address [address] [place] [address] Phone Support Name Relationship Address Phone Axel England Domestic partner [address] [facility] [address] [place] [address] Care Team Providers Care Lab Rep Name Role Phone Suze Shahid MD Primary Care Provider [phone] Allergies Active Allergy Reactions Criticality Noted Date [...] Encounters Date Type Department Care Team Description 06/02/2025 10:00 AM EDT Ancillary Procedure [facility] Cardiology [facility] [address] [place] [phone] Syncope, unspecified syncope type 05/29/[address] [facility] [address] [place] [address] Shahid Juárez MD 05/13/2025 Telephone [facility] [address] [place] [address] Shahid Juárez MD 05/12/2025 1:20 PM EDT Office Visit [facility] [address] [place] [address] Shahid Juárez MD Syncope, unspecified syncope type (Primary Dx) 05/09/2025 9:15 AM EDT Consult Orthopedic Surgery - [place] [address] [facility] [address] [place] [phone] Torsten Pressley DPM Verruca plantaris (Primary Dx); Foot callus 05/07/2025 11:00 AM EDT Office Visit Bariatric Surgery - [place] [address] [facility] [address] [place] [phone] Nicole Lagunas PA Overweight (BMI 25.0-29.9) (Primary Dx); Pseudotumor cerebri; Bariatric surgery status; Dizziness 04/18/2025 9:15 AM EDT Ancillary Procedure Pulmonology - [place] [address] [facility] [address] [place] [address] Moderate persistent asthma, unspecified whether complicated 04/17/2025 11:30 AM EDT Office Visit Internal Medicine - [place] [address] [facility] [address] [place] [address] Baldo Lewis MD Syncope, unspecified syncope type (Primary Dx); Pseudotumor cerebri; Bariatric surgery status; Foot callus 04/11/2025 10:15 AM EDT Office Visit Bariatric Surgery - [address] [place] [address] Nicole Lagunas PA Overweight (BMI 25.0-29.9) (Primary Dx); Pseudotumor cerebri 04/10/2025 10:00 AM EDT Consult Pulmonology - [place] [address] [facility] [address] [place] [address] Vahid Vuong MD Moderate persistent [...] obesity with BMI of 4 0.0-44.9, adult (CMS/[facility] V24, CMS/[facility] V28) 03/15/2021 DX:Morbid obesity wit h BMI of 40.0-44.9, adult ([facility]) Benign intracranial hypertension DX:Benign intracranial hypertension Pseudotumor cerebri Bypass graft mechanical comp lication ([facility] V24) Class 1 obesity due to exces [...] your loved ones. For example, early childhood aide classroom or elderly care for an older adult? [...] AM EDT Office Visit Orthopedic Surgery - [place] [address] [place] [phone] Torsten Pressley DPKelin [address] [facility] [address] [place] [phone] 06/10/2025 11:00 AM EDT Office Visit Bariatric Surgery - [place] [address] [facility] [address] [place] [phone] Paola Guzman MD [address] [place] [phone] 06/24/2025 10:15 AM EST Office Visit Pulmonology - [place] [address] [facility] [address] [place] [phone] Vahid Vuong MD 175 [facility] [address] [place] [address] 08/01/2025 7:40 AM EST Office Visit [facility] - [facility] [address] [place] [phone] Teresa Byers NP [address] [place] [address] [place] [phone] Health Maintenance Due Date Last Done Comments [...] GEMUSE QTc 410 ms GEMUSE P Wave [place] 23 degrees GEMUSE R [place] 79 degrees GEMUSE T [place] 38 degrees GEMUSE ECG Interpretation Sinus bradycardia Otherwise normal ECG When compared with ECG of 14-DEC-2024 05:00, No significant change was found Confirmed by Long JUÁREZ JAMES ([id number]) on 05/12/2025 7:43:29 PM GEMUSE 05/12/2025 1:26 PM EDT 05/12/2025 7:43 PM EDT Shahid Juárez MD ECG ORDERABLES Final Result GEMUSE * Pulmonary function testing: Spirometry with Bronchodilator, [...] LAB CHEMISTRY METHOD 04/04/2025 3:02 PM EDT [facility] TIBC 266 250 - 450 mcg/dL LAB CHEMISTRY METHOD 04/04/2025 3:02 PM EDT [facility] Iron Saturation 33 15 - 50 % LAB CHEMISTRY METHOD 04/04/2025 3:02 PM EDT [facility] Blood Venous blood specimen / Unknown Venipuncture / Unknown 04/04/2025 12:10 PM EDT 04/04/2025 12:11 PM EDT Nicole GAMBOA LAB BLOOD ORDERABLES Final R esult Performing Organization Address City/[facility]/ZIP Co de Phone Number [facility] [address] [place] [address], [place] [phone] * Zinc (04/04/2025 12:10 PM EDT) Zinc 64 60 - 130 ug/dL 04/07/2025 12:47 PM EDT [facility] Comment: Elevated results may be due to sample collected in a non-certified trace element-free tube. This test was developed and the performance characteristics determined by [facility]. It has not been cleared or approved by the FDA. The laboratory is regulated under CLIA as qualified to perform high-complexity testing. This test is used for patient testing purposes. It should not be regarded as investigational or for research. Test performed at [facility], [address], [place] [address] Linda Palmer MD, PhD - Rn Mds Coordinator Blood Venous blood specimen / Unknown Venipuncture / Unknown 04/04/2025 12:10 PM EDT 04/04/2025 12:11 PM EDT Nicole GAMBOA LAB BLOOD ORDERABLES Final R esult [facility] [address] [place] [address] * Selenium serum (04/04/2025 12:10 PM EDT) Selenium 107 63 - 160 mcg/L 04/08/2025 5:00 PM EDT [facility] Comment: Testing was performed on a specimen submitted in a tube which has not been certified to be free of trace elements. Repeat testing on a specimen collected in a trace element tube is recommended prior to initiation of remedial action or environmental investigation of potential heavy metal sources. Refer to the [employer] Directory of Services for proper specimen collection information. This test was developed and its analytical performance characteristics have been determined by [employer] [place], [place]. It has not been cleared or approved by the U.S. Food and Drug Administration. This assay has been validated pursuant to the CLIA regulations and is used for clinical purposes. Test Performed by [facility], [facility], [address] [place] [address] Darinel Chávez M.D., Ph.D., Director of Laboratories , CLIA [id number] Blood Venous blood specimen / Unknown Venipuncture / Unknown 04/04/2025 12:10 PM EDT 04/04/2025 12:11 PM EDT Nicole GAMBOA LAB BLOOD ORDERABLES Final R esult [facility] [address] [place] [phone] * Vitamin D 25 hydroxy (04/04/2025 12:10 PM EDT) [facility] Vit D, 25-Hydroxy 42.3 30.0 - 80.0 ng/mL LAB CHEMISTRY METHOD 04/04/2025 4:04 PM EDT [facility] Blood Venous blood specimen / Unknown Venipuncture / Unknown 04/04/2025 12:10 PM EDT 04/04/2025 12:11 PM EDT Nicole GAMBOA LAB BLOOD ORDERABLES Final R esult [facility] [address] [place] [address], [place] [phone] * Vitamin B1 (04/04/2025 12:10 PM EDT) Vitamin B1 Whole Blood 78 38 - 122 ug/L 04/09/2025 8:12 AM EDT [facility] Comment: This test was developed and the performance characteristics determined by [facility]. It has not been cleared or approved by the FDA. The laboratory is regulated under CLIA as qualified to perform high-complexity testing. This test is used for patient testing purposes. It should not be regarded as investigational or for research. Test performed at [facility], [address] [place] [address] Linda Palmer MD, PhD - Rn Mds Coordinator Blood Venous blood specimen / Unknown Venipuncture / Unknown 04/04/2025 12:10 PM EDT 04/04/2025 12:11 PM EDT Nicole GAMBOA LAB BLOOD ORDERABLES Final R esult Performing Organization Address [facility] de Phone Number [facility] [address] [place] [address] * Vitamin B6 (04/04/2025 12:10 PM EDT) Pathologist [facility] Vitamin B6 (Pyridoxine) Level 27 5 - 50 ug/L 04/08/2025 12:50 PM EDT [facility] Comment: This test was developed and the performance characteristics determined by [facility]. It has not been cleared or approved by the FDA. The laboratory is regulated under CLIA as qualified to perform high-complexity testing. This test is used for patient testing purposes. It should not be regarded as investigational or for research. Test performed at [facility], [address] [facility] [place] [address] Linda Palmer MD, PhD - Rn Mds Coordinator Blood Venous blood specimen / Unknown Venipuncture / Unknown 04/04/2025 12:10 PM EDT 04/04/2025 12:11 PM EDT Nicole GAMBOA LAB BLOOD ORDERABLES Final R esult [facility] [address] [place] [address] * Folate (04/04/2025 12:10 PM EDT) [facility] Folate 8.5 2.8 - 17.0 ng/ml LAB CHEMISTRY METHOD 04/04/2025 3:24 PM EDT [facility] Blood Venous blood specimen / Unknown Venipuncture / Unknown 04/04/2025 12:10 PM EDT 04/04/2025 12:11 PM EDT Nicole GAMBOA LAB BLOOD ORDERABLES Final R esult Performing Organization Address City/[facility]/ZIP Co de Phone Number [facility] [address] [place] [address], [place] [phone] * Vitamin B12 (04/04/2025 12:10 PM EDT) [facility] Vitamin B-12 539 250 - 900 pcg/mL LAB CHEMISTRY METHOD 04/04/2025 3:24 PM EDT [facility] Blood Venous blood specimen / Unknown Venipuncture / Unknown 04/04/2025 12:10 PM EDT 04/04/2025 12:11 PM EDT Nicole GAMBOA LAB BLOOD ORDERABLES Final R esult [facility] [address] [place] [address], [place] [phone] * Comprehensive metabolic panel (04/04/2025 12:10 PM EDT) [facility] Sodium 142 133 - 145 mmol/L LAB CHEMISTRY METHOD 04/04/2025 3:24 PM EDT [facility] Potassium 3.8 3.5 - 5.5 mmol/L LAB CHEMISTRY METHOD 04/04/2025 3:24 PM EDT [facility] Chloride 110 96 - 110 mmol/L LAB CHEMISTRY METHOD 04/04/2025 3:24 PM [facility] CO2 29 21 - 32 mmol/L LAB CHEMISTRY METHOD 04/04/2025 3:24 PM [facility] Anion Gap 3 3 - 11 LAB CHEMISTRY METHOD 04/04/2025 3:24 PM [facility] Glucose 82 70 - 100 mg/dL LAB CHEMISTRY METHOD 04/04/2025 3:24 PM [facility] BUN 13 5 - 25 mg/dL LAB CHEMISTRY METHOD 04/04/2025 3:24 PM [facility] Creatinine 0.74 0.50 - 1.10 mg/dL LAB CHEMISTRY METHOD 04/04/2025 3:24 PM [facility] eGFR 110 >=60 mL/min/1. 73m2 LAB CHEMISTRY METHOD 04/04/2025 3:24 PM [facility] Comment:Calculation based on the Chronic Kidney Disease Epidemiology Collaboration (CKD-EPI) equation refit without adjustment for race. BUN/Creatinine Ratio 17.6 LAB CHEMISTRY METHOD 04/04/2025 3:24 PM [facility] Calcium 9.0 8.5 - 10.5 mg/dL LAB CHEMISTRY METHOD 04/04/2025 3:24 PM [facility] AST (SGOT) 16 10 - 42 unit/L LAB CHEMISTRY METHOD 04/04/2025 3:24 PM [facility] ALT (SGPT) 24 10 - 60 unit/L LAB CHEMISTRY METHOD 04/04/2025 3:24 PM [facility] Alkaline Phosphatase 60 42 - 121 unit/L LAB CHEMISTRY METHOD 04/04/2025 3:24 PM [facility] Total Protein 6.5 6.0 - 8.0 g/dL LAB CHEMISTRY METHOD 04/04/2025 3:24 PM [facility] Albumin 3.6 3.2 - 5.0 g/dL LAB CHEMISTRY METHOD 04/04/2025 3:24 PM EDT [facility] Total Bilirubin 0.6 0.0 - 1.4 mg/dL LAB CHEMISTRY METHOD 04/04/2025 3:24 PM EDT [facility] Blood Venous blood specimen / Unknown Venipuncture / Unknown 04/04/2025 12:10 PM EDT 04/04/2025 12:11 PM EDT us Nicole GAMBOA LAB BLOOD ORDERABLES Final R esult [facility] [address] [place] [address], [place] [phone] * Urinalysis with reflex microscopic and culture (03/20/2025 3:54 PM EDT) Specific [place] Urine 1.017 1.003 - 1.030 LAB URINALYSIS - AUTOMATED METHOD 03/20/2025 6:50 PM [facility] pH, Urine 7.0 5.0 - 8.0 pH LAB URINALYSIS - AUTOMATED METHOD 03/20/2025 6:50 PM [facility] Leukocytes, Urine Negative Negative LAB URINALYSIS - AUTOMATED METHOD 03/20/2025 6:50 PM [facility] Nitrite, Urine Negative Negative LAB URINALYSIS - AUTOMATED METHOD 03/20/2025 6:50 PM [facility] Protein, Urine Negative <=Trace mg/dL LAB URINALYSIS - AUTOMATED METHOD 03/20/2025 6:50 PM [facility] Glucose, Urine Negative Negative mg/dL LAB URINALYSIS - AUTOMATED METHOD 03/20/2025 6:50 PM [facility] Ketones, Urine Negative Negative mg/dL LAB URINALYSIS - AUTOMATED METHOD 03/20[facility]2025 [facility] Urobilinogen, Urine 1.0 0.2 - 1.0 mg/dL LAB URINALYSIS - AUTOMATED METHOD 03/20/2025 6:50 PM EDT [facility] Bilirubin, Urine Negative Negative LAB URINALYSIS - AUTOMATED METHOD 03/20/2025 6:50 PM EDT [facility] Blood, Urine Negative Negative LAB URINALYSIS - AUTOMATED METHOD 03/20/2025 6:50 PM EDT [facility] Urine Urine specimen obtained by clean catch procedure / Unknown Non-blood Collection / Unknown 03/20/2025 3:54 PM EDT 03/20/2025 3:54 PM EDT Nicole GAMBOA LAB URINE ORDERABLES Final R esult Performing Organization Address City/[facility]/ZIP Co de Phone Number [facility] [address] [place] [address], [place] [phone] * Avina urine culture tube (03/20/2025 3:54 PM EDT) Pathologist [facility] Extra Tube Hold for add-ons. 03/20/2025 7:01 PM EDT [facility] Comment:Auto resulted. Urine Urine specimen obtained by clean catch procedure / Unknown Non-blood Collection / Unknown 03/20/2025 3:54 PM EDT 03/20/2025 3:54 PM EDT Nicole GAMBAO LAB URINE ORDERABLES Final R esult [facility] [address] [place] [address], [place] [phone] * Hepatitis C antibody (10/10/2024 11:52 AM EST) Hepatitis C Antibody Negative Negative LAB CHEMISTRY METHOD 10/10/2024 4:47 PM EST [facility] Blood Venous blood specimen / Unknown Venipuncture / Unknown 10/10/2024 11:52 AM EST 10/10/2024 11:52 AM EST us [place] Jeramie Collazo AMY LAB BLOOD ORDERABLES Final Res ult Performing Organization Address [facility]/ZIP Co de Phone Number [facility] [address] [place] [address], * HIV 1,2 antibody, p24 antigen with reflex to differentiation (10/10/2024 11:52 AM EST) HIV Combo AB/AG Negative Negative LAB CHEMISTRY METHOD 10/10/2024 4:48 PM EST [facility] Blood Venous blood specimen / Unknown Venipuncture / Unknown 10/10/2024 11:52 AM EST 10/10/2024 11:52 AM EST Narrative [facility] - 10/10/2024 4:48 PM EST This assay is a 4th generation assay allowing for earlier detection of HIV infection by detecting the presence of the HIV-1 p24 antigen as well as the traditional antibodies to HIV type 1 (including group O) and type 2. Use of a 4th generation assay is the current CDC recommendation for HIV screening. us Betsey Collazo [facility] BLOOD ORDERABLES Final Res ult Performing Organization Address City/[facility]/ZIP Co de Phone Number [facility] [address] [place] [address], * HPV with reflex genotype (10/10/2024 10:54 AM EST) HPV Negative Negative LAB MICROBIOLOGY METHOD 10/11/2024 2:02 PM EST [facility] Brushing/Spatula Cervix uteri structure / Unknown 10/10/2024 10:54 AM EST 10/11/2024 7:57 AM EST us Betsey Collazo [facility] MOLECULAR DIAGNOSTICS MOOSE JURADO Final Result [facility] [address] [place] [address], * (ABNORMAL) Lipid panel (11/27/2023) LDL/HDL Ratio 4 0 - 4 Triglycerides 163(A) 0 - 150 mg/dL Cholesterol 122 0 - 200 mg/dL HDL 35(A) >=40 mg/dL LDL Cholesterol 55 0 - 100 mg/dL Blood Venous blood specimen / Unknown Historical Provider LAB BLOOD ORDERABLES Elizabeth moreno Result from Last 3 Months or Most Recently Relevant to Health Maintenance [place] [address] [address] [place] [address] [employer] Care Teams Lab Rep Relationship Specialty Start Date End Date Suze Shahid MD [address] [phone] PCP - General Internal Medicine 06/03/21
--- OUTSIDE RECORDS SUMMARY | 2025-06-05 09:41 | XMS_ITS | Data Portability ---
Author Organization [place] - [facility], [facility]- Address [address] [place] [address] Care Team Providers Care Forestry Technician Name Role Phone SHELLY PONCE Primary Care Provider [phone] SHELLY PONCE Referring Provider JARED VANEGAS Digital Printer Operator Unavaila ble Assessment Encounter Date Assessment Date Assessment LastModified by Organization Details LastModified Time 09/12/2018 09/12/2018 Left knee injury. 12 17. Her daughter was sledding towards her. She went between her legs, grabbing one leg and twisting her left knee. Crack and popping sensation. Prior right knee surgery 2011 in [place]. She had likely a displaced bucket handle meniscus tear at that time while she was and had surgery after . Seen at [facility]: Xrays there and sunrise here normal. Was [...] felt like it shifted. Limping. Seen at [facility] ER. We discussed options last visit re [...] cyst. 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 She will ice and do strengthening and will update us on progress. jmoses Not available 09/12/2018 16:35:07 12/12/2018 12/12/2018 Left knee injury. 12 25 17. Her daughter was sledding towards her. She went between her legs, grabbing one leg and twisting her left knee. Crack and popping sensation. Prior right knee surgery 2011 in [place]. She had likely a displaced bucket handle meniscus tear at that time while she was and had surgery after . Seen at [facility]: Xrays there and sunrise here normal. Was [...] felt like it shifted. Limping. Seen at [facility] ER. We discussed options last visit re [...] She is seeing weight loss center at [facility] with plans for gastric bypass. She will see us in follow up in 3-4 months. jmoses Not available 12/12/2018 19:04:04 04/09/2019 04/09/2019 Left knee injury. 12 25 17. Her daughter was sledding towards her. She went between her legs, grabbing one leg and twisting her left knee. Crack and popping sensation. Prior right knee surgery 2011 in [place]. She had likely a displaced bucket handle meniscus tear at that time while she was and had surgery after . Seen at [facility]: Xrays there and sunrise here normal. Was [...] felt like it shifted. Limping. Seen at [facility] ER. We discussed options last visit re [...] periodic treatment. She has been seen at [facility] weight loss center. She has decreased her [...] her knee. She has been seen at [facility] weight loss center. She has decreased her [...] her case. She is working with an real estate associate attorney. Follow up recheck 4 months. jmoses Not available 04/09/2019 12:04:58 06/28/2019 06/28/2019 Left knee injury. 12 25 17. Her daughter was sledding towards her. She went between her legs, grabbing one leg and twisting her left knee. Crack and popping sensation. Prior right knee surgery 2011 in [place]. She had likely a displaced bucket handle meniscus tear at that time while she was and had surgery after . Seen at [facility]: Xrays there and sunrise here normal. Was [...] felt like it shifted. Limping. Seen at [facility] ER. We discussed options last visit re [...] periodic treatment. She has been seen at [facility] weight loss center. She has decreased her [...] weight loss. She has been seen at [facility] weight loss center. She has decreased her [...] loss surgery and has discussed having a METAL RIVET MACHINE OPERATOR shunt placed. She has follow up with weight loss center. I would certainly hold off on any knee surgery until after she has attained weight loss. I think weight loss with help her knee pain. She reports that work comp has now denied her case. She is working with an real estate associate attorney. Follow up recheck 1 month jmoses Not available 06/30/2019 11:53:48 03/04/2020 03/04/2020 Right knee injury. 03 02 2020. Stepped on friend's porch. Wood underneath broke and her foot went down into hole. Twisted knee. No Pop in knee at time of injury. Pain since. No Mechanical symptoms. No Giving way. Medial and posterior bruising. Lateral thigh bruising. Xrays [facility] Right knee No Effusion. No fracture. Preserved joints spaces. Xrasy [facility] femur Normal. Right knee/leg injury. Prior surgery [...] DO Not Attach Compendium, Do Not Delete/merge, [id number] 11:53:51 Medication Orders None record ed. Patient TargetsNo targets recorded. Patient Instructions Encounter Date Encounter Id Patient Instructions Last Modified By Organization Details Last Modified Time 09/12/2018 [id number] knee sprain: car e instructions jmoses Not [...] medication. jmoses Not available 09/12/2018 14:20:28 12/12/2018 [id number] knee sprain: car e instructions jmoses Not available 12/12/2018 19:04:12 knee pain or injury: care instructions jmoses Not available 12/12/2018 19:04:12 04/09/2019 [id number] knee sprain: car e instructions jmoses Not available 04/09/2019 12:03:38 knee pain or injury: care instructions jmoses Not available 04/09/2019 12:03:38 06/28/2019 [id number] knee sprain: car e instructions jmoses Not [...] Name and Address Organization Details Recorded Time [id number] Cipro medicatio n Not available Not available Not available 08/16/2017 [id number] RxNorm Imelda monreal [place] - [facility] [...] Updated DateTime 09/12/2018 167.64 cm 46.8 kg/m2 152349.79 g parris king [facility] 09/12/2018 14:08:34 Date Recorded Body height Body mass index (BMI) Body weight Provider Name and Address Organization Details Last Updated DateTime 12/12/2018 167.64 cm 46.8 kg/m2 558514.79 g kandi maurice [facility] 12/12/2018 14:44:06 Date Recorded Body height Body mass index (BMI) Body weight Provider Name and Address Organization Details Last Updated DateTime 03/04/2020 167.64 cm 46.8 kg/m2 498295.79 [facility]/04/2020 09:08:48 Date Recorded Body height Body mass index (BMI) Body weight Provider Name and Address Organization Details Last Updated DateTime 04/07/2020 167.64 cm 46.8 kg/m2 404945.79 g [facility] 04/07/2020 08:17:47 Date Recorded Body height Body mass index (BMI) Body weight Provider Name and Address Organization Details Last Updated DateTime 04/09/2019 167.64 cm 46.8 kg/m2 244338.79 g Kaelyn Lehman [facility] 04/09/2019 11:01:51 Date Recorded Body height Body mass index (BMI) Body weight Provider Name and Address Organization Details Last Updated DateTime 06/28/2019 167.64 cm 46.8 kg/m2 853406.79 [facility] 06/28/2019 14:27:45 Social History Question Answer Notes LastModified by Organizat ion Details LastModified Time Tobacco Smoking Status Never Smoker Imelda monreal [facility] 08/16/2017 09:02:28 What Was The Date Of [...] ICD10 Code Diagnosis IMO Codes Diagnosis Note [id number] MD BRYAN Hastings [address] [place] [address] 08/16/2017 08:40:11 08/16/2017 10:28:01 Sprain of knee 68950804 S83.92XA [id number] MD BRYAN Hastings [address] [place] [address] 08/23/2017 10:38:12 08/23/2017 11:21:14 Knee pain 70355149 M25.562 Sprain of knee 45750390 S83.92XA [id number] MD BRYAN Hastings [address] [place] [address] 09/22/2017 13:01:17 09/22/2017 13:39:27 Sprain of knee 21454560 S83.92XA Knee pain 21822612 M25.5 62 [id number] MD BRYAN Hastings [address] [place] [address] 11/17/2017 09:44:02 11/17/2017 10:31:53 Sprain of knee 07152186 S83.92XA Knee pain 97834109 M25.5 62 [id number] MD BRYAN Hastings [address] [place] [address] 02/13/2018 10:27:02 02/13/2018 11:52:33 Rupture of anterior cruciate ligament 339224664 M23.612 Sprain of knee 36059981 S83.92XA Knee pain 47967174 M25.5 62 [id number] MD BRYAN Hastings [address] [place] [address] 02/27/2018 08:34:45 02/27/2018 09:19:34 Rupture of anterior cruciate ligament 111325444 M23.612 Sprain of knee 84701570 S83.92XA Knee pain 68154991 M25.5 62 [id number] MD BRYAN Hastings [address] [place] [address] 03/27/2018 14:10:59 03/27/2018 15:37:08 Rupture of anterior cruciate ligament 866434229 M23.612 Sprain of knee 64217148 S83.92XA Knee pain 93279146 M25.5 62 [id number] MD BRYAN Hastings [address] [place] [address] 04/20/2018 09:05:45 04/20/2018 09:30:19 Rupture of anterior cruciate ligament 790802045 M23.612 Sprain of knee 89163863 S83.92XA Knee pain 19324582 M25.5 62 [id number] MD BRYAN Hastings [address] [place] [address] 06/01/2018 08:43:17 06/01/2018 09:08:32 Rupture of anterior cruciate ligament 568027187 M23.612 Sprain of knee 49432438 S83.92XA Knee pain 89342014 M25.5 62 [id number] MD BRYAN Hastings [address] [place] [address] 07/13/2018 08:13:13 07/13/2018 08:52:57 Rupture of anterior cruciate ligament 266346759 M23.612 Sprain of knee 61891661 S83.92XA Knee pain 22056915 M25.5 62 [id number] MD BRYAN Hastings [address] [place] [address] 07/17/2018 14:39:11 07/17/2018 15:39:25 Pain in right knee 8349622341 36825 M25.561 Osteoarthr itis of right knee joint 9464315450 46563 M17.11 [id number] MD BRYAN Hastings [address] [place] [address] 09/12/2018 14:06:14 09/12/2018 14:36:51 Rupture of anterior cruciate ligament 319914232 M23.612 Sprain of knee 99413815 S83.92XA Knee pain 00383385 M25.5 62 [id number] MD BRYAN Hastings [address] [place] [address] 12/12/2018 14:42:34 12/12/2018 15:12:14 Rupture of anterior cruciate ligament 052957067 M23.612 Sprain of knee 31298344 S83.92XA Knee pain 14446646 M25.5 62 [id number] MD BRYAN Hastings [address] [place] [address] 04/09/2019 11:00:14 04/09/2019 11:16:26 Rupture of anterior cruciate ligament 650597176 M23.612 Sprain of knee 34549140 S83.92XA Knee pain 75774335 M25.5 62 [id number] MD BRYAN Hastings [address] [place] [address] 06/28/2019 14:26:48 06/28/2019 15:27:25 Rupture of anterior cruciate ligament 091975889 M23.612 Sprain of knee 22072975 S83.92XA Knee pain 94510768 M25.5 62 [id number] MD BRYAN Hastings [address] [place] [address] 03/04/2020 09:04:35 03/04/2020 09:59:10 Pain in right knee 2399077688 38400 M25.561 Sprain of right knee 687 2092180 8823476 S83.91XA Health Concerns Section Related Observation LastModified by Organization Detai ls LastModified Time None Recorded Concern Status LastModified by Organization Details LastModified Time None Recorded Advance Directives Directive None Recorded Payers Insurance Date Sequence Insurance Name Policy Number Policy Encinas Covered Member ID Encinas Member ID Guarantor Name 11/15/2017 1 [place] [facility] Samantha Hammondanda [id number] Samantha Casas 02/13/2018 1 [facility] [employer] - TOGETHER (MEDICAID HMO) Samantha Hammondanda [id number] Samantha Hammondanda 04/07/2020 1 [facility] PLAN (MEDICAID REPLACEMENT - HMO) Samantha Casas [id number] Samantha Hammondanda 03/03/2020 [employer] [facility] Samantha Casas Notes Date Note Type [...] popping sensation.Prior right knee surgery 2011 in [place]. She had likely a displaced bucket handle meniscus tear at that time while she was and had surgery after .Seen at [facility]: Xrays there and sunrise here normal.In immobilizer [...] again, knee felt like it shifted.Limping.Seen at [facility] ER.Was on crutches. Has had many trips [...] she has received a call from her scale adjuster that her case was determined by them not to be work related. She is having continued medial left knee pain. Has lost 25lbs. Has not had another instability episode yet. Rick Lopez MD [address] [place] [address], [phone], [place] - [facility] 09/12/2018 16:35:27 [...] popping sensation.Prior right knee surgery 2011 in [place]. She had likely a displaced bucket handle meniscus tear at that time while she was and had surgery after .Seen at [facility]: Xrays there and sunrise here normal.In immobilizer [...] again, knee felt like it shifted.Limping.Seen at [facility] ER.Was on crutches. Has had many trips [...] working on weight loss. Rick Lopez MD [address] [place] [address], [phone], [place] - [facility] 12/12/2018 19:04:14 [...] popping sensation.Prior right knee surgery 2011 in [place]. She had likely a displaced bucket handle meniscus tear at that time while she was and had surgery after .Seen at [facility]: Xrays there and sunrise here normal.In immobilizer [...] again, knee felt like it shifted.Limping.Seen at [facility] ER.Was on crutches. Has had many trips [...] weight loss. She has been seen at [facility] weight loss center.She has decreased her weight as well. 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 Rick Lopez MD [address] [place] [address], [phone], [place] - [facility] 04/09/2019 12:05:02 [...] popping sensation.Prior right knee surgery 2011 in [place]. She had likely a displaced bucket handle meniscus tear at that time while she was and had surgery after .Seen at [facility]: Xrays there and sunrise here normal.In immobilizer [...] again, knee felt like it shifted.Limping.Seen at [facility] ER.Was on crutches. Has had many trips [...] weight loss. She has been seen at [facility] weight loss center.She has decreased her weight as well. 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 She has discussed having weight loss surgery and has discussed having a METAL RIVET MACHINE OPERATOR shunt placed. Was doing workout. More pain in knee 11 19. On crutches and brace. Rick Lopez MD [address] [place] [address], [phone], [place] - [facility] 06/30/2019 11:53:54 [...] posterior bruising.Lateral thigh bruising. Rick Lopez MD [address] [place] [address], [phone], [facility] - [facility] 03/04/2020 09:58:23 OBGyn Episode No OBEpisode recorded.
== END 2025-06-05 09:27 | disposition home or self-care (01) ==
LOC: HO.HSMS 08:56
PROVIDERS: PCP Internal Medicine; Visit Provider Psychiatry & Neurology Neurology
DX: G47.19 Other hypersomnia (principal); G93.2 Benign intracranial hypertension; G43.909 Migraine, unspecified, not intractable, without status migrainosus
CPT/HCPCS: 99214

== ENCOUNTER → 2025-06-05 08:55 | Outpatient (BNVA) | payer OTHER, SELFPAY | PROVIDERS: PCP Internal Medicine; Visit Provider Psychiatry & Neurology Neurology | DX: G93.2 Benign intracranial hypertension (principal); G47.19 Other hypersomnia; G43.909 Migraine, unspecified, not intractable, without status migrainosus | CPT/HCPCS: 99212 ==